=== PATIENT | female | born 1950 | race Caucasian/White ===

== ENCOUNTER → 2016-04-22 | Outpatient (CLI) | payer BC ==
[~2016-04-22] MED LIST: AMLO-114 PO; ASCO10003 PO; EPP3/2; LORA-741 PO; LUTE10TA PO; MULT-845 PO
--- NOTE | 2016-04-22 11:26 | DIAGNOSTIC IMAGING REPORT ---
CT SCAN OF THE PARANASAL SINUSES CLINICAL HISTORY: Chronic sinusitis. Headache and facial pain. COMPARISON STUDY: MRI of the brain dated 09/11/2010. TECHNIQUE: High-resolution CT scan of the paranasal sinuses is performed. Images are reviewed in the axial, sagittal, and coronal planes. IV contrast was not administered for this examination. The examination is performed utilizing the fusion protocol. CT DOSE: 602.96 mGy.cm FINDINGS: Maxillary antra: Mild nodular mucosal thickening seen on the left. Trace nodular mucosal thickening is seen on the right. Anterior ethmoid sinuses: Clear. Posterior ethmoid sinuses: Mild mucosal thickening on the right. Clear on the left. Sphenoid sinuses: Trace mucosal thickening is noted. Frontal sinuses: Trace mucosal thickening is seen bilaterally. Ostiomeatal complexes: Patent bilaterally. There are small bilateral Garrett cells. Frontoethmoidal and sphenoethmoidal recesses: Patent bilaterally. Carotid arteries: The carotid arteries are deeply covered and without septal attachments. Ethmoid roofs: There is asymmetric elevation of the left ethmoid roof as compared to the right. Nasal turbinates: Normal in appearance. Nasal septum: There is minimal leftward deviation of the bony nasal septum. Optic nerves: Covered. Orbits: The bony orbits are intact. Orbital contents are normal in appearance. Calvarium: The imaged calvarium is normal in appearance Mastoid air cells: Well pneumatized. Brain parenchyma: Partially visualized brain parenchyma is within normal limits. IMPRESSION: Mild paranasal sinus disease as above. Electronically signed by: Mal Kaplan M.D. 04/22/2016 11:24 AM Dictated Date/Time: 04/22/2016 11:20 AM
== END | disposition home or self-care (01) ==
LOC: C.CTS 10:47
DX: J31.0 Chronic rhinitis (principal); J32.9 Chronic sinusitis, unspecified; R51 Headache

== ENCOUNTER → 2016-06-20 | Outpatient (CLI) | payer BC ==
--- NOTE | 2016-06-20 16:26 | DIAGNOSTIC IMAGING REPORT ---
LEFT KNEE 2 VIEWS CLINICAL HISTORY: Left knee pain. FINDINGS: AP and lateral views of the left knee are obtained. No prior studies are available for comparison at the time of dictation. The skeletal structures are osteopenic. No fracture is seen. There is mild tricompartmental degenerative joint space narrowing. There is mild degenerative beaking of the tibial spine. No significant joint effusion is identified. The overlying soft tissues are within normal limits. IMPRESSION: No acute bony abnormality is seen in the left knee. Electronically signed by: Mal Kaplan M.D. 06/20/2016 4:26 PM Dictated Date/Time: 06/20/2016 4:25 PM
--- NOTE | 2016-06-20 16:43 | DIAGNOSTIC IMAGING REPORT ---
C-SPINE ROUTINE 4 OR 5 VIEWS CLINICAL HISTORY: Neck pain. COMPARISON STUDY: Cervical spine MRI September 11, 2010. FINDINGS: Reversal of the normal cervical lordosis is noted. There is no fracture or suspicious lesion within the cervical spine. Nspv-li-[id number] multilevel degenerative disc disease is noted, most pronounced at the C4-C5, C5-C6 and C6-C7 levels. Mild multilevel facet arthrosis is present. IMPRESSION: 1. Mild to moderate multilevel degenerative disc disease, most pronounced at C4-C5, C5-C6 and C6-C7. 2. Reversal of normal cervical lordosis. 3. No cervical spine fracture. Electronically signed by: Ricki Rayo M.D. 06/20/2016 4:42 PM Dictated Date/Time: 06/20/2016 4:41 PM
== END | disposition home or self-care (01) ==
LOC: C.RAD 15:57
PROVIDERS: ATTEND Physician Assistant Medical
DX: M54.2 Cervicalgia (principal)

== ENCOUNTER → 2016-08-22 | Outpatient (CLI) | payer BC | END | disposition home or self-care (01) | LOC: C.MAMM 10:17 | PROVIDERS: ATTEND Internal Medicine | DX: M85.88 Other specified disorders of bone density and structure, other site (principal) ==

== ENCOUNTER → 2016-08-29 | Outpatient (CLI) | payer BC ==
[2016-08-29 12:25] LABS: BASO % 0.9 %; BASO ABS # 0.05 K/uL (0-0.2); COMPLETE YES; EOS % 1.7 %; HEMATOCRIT 40.1 % (37-47); IG% 0.2 %; LYMPH ABS # 1.67 K/uL (1.2-3.4); MEAN CELL VOLUME 89.7 fL (80-100); MEAN CORPUSCULAR HEMOGLOBIN 29.3 pg (25-34); MEAN CORPUSCULAR HGB CONC 32.7 g/dl (32-36); MEAN PLATELET VOLUME 10.1 fL (7.4-10.4); MONO % 8.7 %; NEUT % 59.5 %; PLATELET COUNT 249 K/uL (130-400); RED BLOOD COUNT 4.47 M/uL (4.2-5.4); WHITE BLOOD COUNT 5.75 K/uL (4.8-10.8)
[2016-08-29 12:43] LABS: ALT/SGPT 49 U/L (12-78); AST/SGOT 34 U/L (15-37); BLOOD UREA NITROGEN 16 mg/dl (7-18); BUN/CREATININE RATIO 19.3 (10-20); CALCIUM 9.8 mg/dl (8.5-10.1); CARBON DIOXIDE 25 mmol/L (21-32); CHLORIDE 111 mmol/L (98-107); CREATININE 0.82 mg/dl (0.60-1.20); GLUCOSE 95 mg/dl (70-99); POTASSIUM 4.1 mmol/L (3.5-5.1); SODIUM 143 mmol/L (136-145)
[2016-08-29 12:46] LABS: ALB/GLOB RATIO 1.1 (0.9-2); ALKALINE PHOSPHATASE 78 U/L (45-117)
[2016-08-29 12:59] LABS: LYME DISEASE AB IGG NEG (NEG)
[2016-08-29 13:02] LABS: LYME DISEASE AB IGM NEG (NEG)
== END | disposition home or self-care (01) ==
LOC: C.LABBFT 10:03
PROVIDERS: ATTEND Physician Assistant Medical
DX: M25.50 Pain in unspecified joint (principal)

== ENCOUNTER → 2016-08-31 | Outpatient (CLI) | payer BC ==
[2016-08-31 17:58] LABS: C-REACTIVE PROTEIN < 0.29 mg/dl (0-0.29); RHEUMATOID FACTOR < 10.0 U/mL (0-15); THYROID STIMULATING HORMONE 0.774 uIu/ml (0.300-4.500)
[2016-09-05 12:38] LABS: RMSF IgM AB Not Detected (Not Detected)
--- NOTE | 2016-09-13 11:11 | CODING QUERY MEDICAL NECESSITY ---
CQSUPPORTING DIAGNOSIS NEEDED A supporting diagnosis is required for the test/procedure performed on this patient in order for us to be reimbursed by the patient's insurance. Please provide a supporting diagnosis for the following test/procedure listed below next to the test name along with your signature. *If there is no additional diagnosis for this patient that would support the following test/procedure please document that below next to the test/procedure. Test(s)/Procedure(s) that require a supporting diagnosis: DOS 08/31/16 VITAMIN D TEST ORDERED BY KAIDEN BARRIOS Provider Signature: Date: Thank you Casie Richards Health Information Management Once completed, please kindly fax back to [phone] For questions please call [phone]
== END | disposition home or self-care (01) ==
LOC: C.LABBFT 10:36
PROVIDERS: ATTEND Physician Assistant Medical
DX: M25.50 Pain in unspecified joint (principal); R53.83 Other fatigue

== ENCOUNTER → 2016-09-15 | Outpatient (CLI) | payer BC ==
--- NOTE | 2016-09-15 10:09 | DIAGNOSTIC IMAGING REPORT ---
RIGHT HAND MIN 3 VIEWS ROUTINE CLINICAL HISTORY: M25.50 Arthralgia of multiple bxsxsB94.8 MAAME positive Both Right pain COMPARISON: None. DISCUSSION: Mild degenerative change of the mid and distal interphalangeal joints throughout. No significant marginal erosive change. Potential slight periarticular osteopenia. There is no evidence for soft tissue swelling. IMPRESSION: Slight periarticular osteopenia with mild degenerative change of the interphalangeal joints. Possibility of early rheumatoid is considered The above report was generated using voice recognition software. It may contain grammatical, syntax or spelling errors. Electronically signed by: Bimal Underwood M.D. 09/15/2016 10:07 AM Dictated Date/Time: 09/15/2016 10:04 AM
--- NOTE | 2016-09-15 10:14 | DIAGNOSTIC IMAGING REPORT ---
LEFT HAND MIN 3 VIEWS ROUTINE CLINICAL HISTORY: 66 years-old Female presenting with arthralgia of multiple sites, MAAME positive. TECHNIQUE: Frontal, oblique, and lateral views of the left hand were obtained. COMPARISON: Correlation made to plain radiographs of the right hand performed the same day. FINDINGS: Calcification/ossification noted immediately distal to the radial styloid. Degenerative changes of the first carpometacarpal joint. No acute fracture or significant malalignment. Radiocarpal and intercarpal articulations normal. IMPRESSION: 1. Degenerative changes of the first carpometacarpal joint. 2. Soft tissue calcification/ossification immediately distal to the radial styloid. Electronically signed by: Tyrese Holly M.D. 09/15/2016 10:13 AM Dictated Date/Time: 09/15/2016 10:08 AM
[2016-09-19 20:26] LABS: ANA SCREEN Negative (Negative)
== END | disposition home or self-care (01) ==
LOC: C.RAD1850 09:35
PROVIDERS: ATTEND Internal Medicine Rheumatology
DX: M25.50 Pain in unspecified joint (principal); R76.8 Other specified abnormal immunological findings in serum

== ENCOUNTER → 2016-10-04 | Outpatient (CLI) | payer BC ==
--- NOTE | 2016-10-05 07:58 | MAMMOGRAPHY REPORT ---
BILATERAL DIGITAL SCREENING MAMMOGRAM WITH CAD: 10/04/2016 CLINICAL HISTORY: Routine screening. TECHNIQUE: Bilateral CC and MLO views were obtained. Current study was also evaluated with a Compute r Aided Detection (CAD) system. COMPARISON: Comparison is made to exams dated: 09/28/2015 mammogram, 09/24/2014 mammogram, 06/19/2013 franco mogram, 06/27/2011 mammogram, 10/30/2009 mammogram - [facility], and 03/07/2008. BREAST COMPOSITION: There are scattered areas of fibroglandular density in both breasts. FINDINGS: No suspicious mass, architectural distortion or cluster of microcalcifications is seen. IMPRESSION: ACR BI-RADS CATEGORY 1: NEGATIVE There is no mammographic evidence of malignancy. A 1 year screening mammogram is recommended. The pa tient will receive written notification of the results. Approximately 10% of breast cancers are not detected with mammography. A negative mammographic report should not delay biopsy if a clinically suggestive mass is present. Sylvie Hastings M.D. ay/:10/04/2016 15:18:31 Scrap Cutter: Devon REID(R)(M), [facility] letter sent: Normal 1/2 BI-RADS Code: ACR BI-RADS Category 1: Negative
== END | disposition home or self-care (01) ==
LOC: C.MAMM 14:37
PROVIDERS: ATTEND Obstetrics & Gynecology
DX: Z12.31 Encounter for screening mammogram for malignant neoplasm of breast (principal)

== ENCOUNTER 2017-09-14 17:43 | Emergency (ER) | payer BC ==
[~2017-09-14] VITALS: Ht 157.5 cm; Wt 68.7 kg
[~2017-09-14 17:43] MED LIST changes: -AMLO-114 PO; +AMLO10TA3 PO; +ZOLP5TAB6 PO
[2017-09-14] MEDS ORDERED: EPINEPHRINE ADULT AUTO-INJECT 0.3 MG SYR ONE (17:46)
[2017-09-14] MEDS ORDERED: FAMOTIDINE 20MG/5ML IV PUSH IV STA (17:47)
[2017-09-14] MEDS ORDERED: DiphenhydrAMINE HCL 50 MG/ML VIAL IV STA (17:47)
[2017-09-14] MEDS ORDERED: SODIUM CHLORIDE 0.9% 1000ML 1,000 ML IV STA (17:47)
[2017-09-14] MEDS ORDERED: EPINEPHRINE ADULT AUTO-INJECT 0.3 MG SYR IM STA (17:47)
[2017-09-14] MEDS ORDERED: METHYLPREDNISOLONE 125 MG VIAL IV STA (17:47)
[2017-09-14 17:51] VITALS: TEMP 37; Ht 157.5 cm; Wt 68.7 kg
--- NOTE | 2017-09-14 17:57 | EMERGENCY ROOM VISIT NOTE ---
History Report prepared by Juan Antonio: Armand Snell Under the Supervision of: Dr. Allan Mccarthy M.D. First contact with patient: 17:46 Chief Complaint: ALLERGIC REACTION Stated Complaint: BEE STING THROAT SWELLING SHUT,SOB History of Present Illness The patient is a 67 year old female who presents to the Emergency Room with complaints of an allergic reaction to bee stings that occurred 30 minutes ago. The patient notes that she has a severe bee sting allergy and has already used 2 EpiPens already this summer and no longer has any epipens. She states that she was mowing her lawn when she got stung 4 times. She received 2 stings to the back of the left knee and 2 to the back of the right arm. She describes her current pain as a "burning" sensation around the sting sites and to the back of her head. She did take 1 Benadryl tablet prior to arrival. She is currently requesting an Epinephrine injection and believes that she will need it. She denies any shortness of breath Source of History: patient Onset: 30 minutes ago Position: arm (right), knee (left) Quality: burning, other (Bee sting) Timing: other (30 minutes ago, bee sting) Associated Symptoms: + SOB Review of Systems See HPI for pertinent positives and negatives. A total of ten systems were reviewed and were otherwise negative. Past Medical & Surgical Medical Problems: (1) radicuylopathy Social History Smoking Status: Never Smoker Drug Use: none Marital Status: Housing Status: lives with family, lives with significant other Current/Historical Medications Scheduled Amlodipine (Norvasc), 10 MG PO QAM Ascorbic Acid (Vitamin C), 1 TAB PO BID Epinephrine (Epipen 2-Jonathan), prn Lutein (Lutein), 2 TAB PO QAM Multiple Vitamins W/ Minerals (Centrum Silver Adult 50+), 1 TAB PO QAM Zolpidem Tartrate (Zolpidem Tartrate), 0.5 TAB PO HS Scheduled PRN Epinephrine (Epipen 2-Jonathan), 1 APPLN IM DIRECTED PRN for Allergic Reaction Allergies Coded Allergies: BEE STING (Verified Allergy, Severe, ANAPHYLAXIS, 09/14/17) Doxycycline (Verified Allergy, Severe, GUILLAIN-BARRE SYNDROME, 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 She appears well- developed and well-nourished. She does not appear distressed. HENT: Exam performed. Head: Normocephalic and atraumatic. Right Ear: External ear normal. No mastoid tenderness. Left Ear: External ear normal. No mastoid tenderness. Mouth/Throat: The oropharynx is clear and moist. No trismus in the jaw. No dental abscesses or uvula swelling. No oropharyngeal exudate or tonsillar abscesses. EYES: Conjunctivae and EOM are normal. Pupils are equal, round, and reactive to light. Right eye exhibits no discharge. Left eye exhibits no discharge. No scleral icterus. NECK: Normal range of motion. Neck supple. No JVD present. No spinous process tenderness present. No carotid bruit present. No rigidity. No tracheal deviation and normal range of motion present. No Brudzinski's sign and no Kernig 's sign noted. CV: Normal rate, regular rhythm, normal heart sounds and intact distal pulses. There is no peripheral edema. Palpable radial pulses bue. PULM/CHEST: Effort normal and breath sounds normal. No respiratory distress. No stridor. She has no wheezes. She has no rales. Chest Wall: She exhibits no tenderness. ABD: The abdomen is soft. Bowel sounds are normal. She has no distension. No mass is present. There is no tenderness. There is no rebound, no guarding, no Manzanares's sign and no tenderness at McBurney's point. Rovsig negative MUSC/SKEL: Normal range of motion. There is no peripheral edema, tenderness or deformity. LYMPH: No cervical adenopathy. NEURO: She is alert and oriented to person, place, and time. She has normal strength. No cranial nerve deficit or sensory deficit. Coordination and gait normal. GCS eye subscore is 4. GCS verbal subscore is 5. GCS motor subscore is 6. Cerebellar tests wnl. SKIN: Skin is warm and dry. She is not diaphoretic. PSYCH: She has a normal mood and affect. Behavior is normal. Judgment and thought content normal. Medical Decision & Procedures Medications Administered Medications (Trade) Dose Ordered Sig/Julio Cesar Route Start Time Stop Time Status Last Admin Dose Admin Epinephrine (Epipen) 0.3 mg STK-MED ONCE .ROUTE 09/14/17 17:46 09/14/17 17:47 DC 09/14/17 17:46 0.3 MG Sodium Chloride 1,000 ml @ 999 mls/hr Q1H1M STAT IV 09/14/17 17:47 09/14/17 18:47 DC 09/14/17 17:57 999 MLS/HR Methylprednisolone Sodium Succinate (Solu-Medrol IV) 125 mg NOW STAT IV 09/14/17 17:47 09/14/17 17:49 DC 09/14/17 17:57 125 MG Diphenhydramine HCl (Benadryl Inj) 25 mg NOW STAT IV 09/14/17 17:47 09/14/17 17:49 DC 09/14/17 17:57 25 MG Famotidine (Pepcid 20mg Iv Push) 20 mg ONE STAT IV 09/14/17 17:47 09/14/17 17:49 DC 09/14/17 17:47 20 MG ED Course 1746: The patient was evaluated in room A3. A complete history and physical exam was performed. 1745: Ordered Epinephrine 0.3 mg, Famotidine 20 mg IV, Benadryl 25 mg IV, Epinephrine 0.3 mg IM, Solu-Medrol 125 mg IV, Sodium Chloride 1000 mL @ 999 mL/ hr IV. 1844: The patient is not exhibiting any stridor at this time. There is no wheezing, no tongue swelling. We will continue to observe the patient given epinephrine injection. 1944: Patient's vitals are stable. She states that she is not feeling like her throat is closing. There is no stridor, no wheezing, no tongue swelling. There is no respiratory distress. The patient will be discharged home with refill EpinephrinePen. DISCHARGE - Plan of care discussed with patient and questions answered. The patient was given both verbal and printed discharge instructions. The patient verbalized understanding and ability to comply. The patient is to seek outpatient follow up as noted in the discharge instructions. The patient verbalized understanding and ability to comply. The patient is discharged in stable condition. The patient was instructed to return for worsening symptoms. Medical Decision 1746: The patient was evaluated in room A3. A complete history and physical exam was performed. 174: Ordered Epinephrine 0.3 mg, Famotidine 20 mg IV, Benadryl 25 mg IV, Epinephrine 0.3 mg IM, Solu-Medrol 125 mg IV, Sodium Chloride 1000 mL @ 999 mL/ hr IV. 184: The patient is not exhibiting any stridor at this time. There is no wheezing, no tongue swelling. We will continue to observe the patient given epinephrine injection. 1944: Patient's vitals are stable. She states that she is not feeling like her throat is closing. There is no stridor, no wheezing, no tongue swelling. There is no respiratory distress. The patient will be discharged home with refill EpinephrinePen. DISCHARGE - Plan of care discussed with patient and questions answered. The patient was given both verbal and printed discharge instructions. The patient verbalized understanding and ability to comply. The patient is to seek outpatient follow up as noted in the discharge instructions. The patient verbalized understanding and ability to comply. The patient is discharged in stable condition. The patient was instructed to return for worsening symptoms. Medication Reconcilliation Current Medication List: was personally reviewed by me Blood Pressure Screening Patient's blood pressure: Elevated blood pressure Blood pressure disposition: Elevated BP felt to be situational Impression Primary Impression: Allergic reaction to bee sting Critical Care I have personally spent greater than 56 minutes of critical care time in the direct management of this patient. This includes bedside care, interpretation of diagnostic studies, and testing, discussion with consultants, patient, and family members, and other required patient management activities. This 56 minutes is in excess of all separately billable procedures. Scribe Attestation The scribe's documentation has been prepared under my direction and personally reviewed by me in its entirety. I confirm that the note above accurately reflects all work, treatment, procedures, and medical decision making performed by me. The chart was completed utilizing [employer] voice recognition software. Grammatical errors, random word insertions, pronoun errors, and incomplete sentences are an occasional consequence of this system due to software limitations, ambient noise, and hardware issues. Any formal questions or concerns about the content, text, or information contained within the body of this dictation should be directly addressed to the physician for clarification. Departure Information Dispostion Home / Self-Care Prescriptions Epinephrine (EPIPEN 2-JONATHAN) 0.3 Mg Inj 1 APPLN IM DIRECTED Y for Allergic Reaction, #1 APPLN 1 Refill Prov: Allan Mccarthy M.D. 09/14/17 Referrals Kenrick Lloyd M.D. (PCP) Patient Instructions My [facility]
[2017-09-14] MEDS ORDERED: EPP3/2 IM (19:40)
[2017-09-14 20:06] VITALS: BP 137/77; PULSE 77; O2SAT 98
== END 2017-09-14 20:06 | disposition home or self-care (01) ==
LOC: C.EDB 17:44 → C.EDA 20:06
DX: T63.441A Toxic effect of venom of bees, accidental (unintentional), initial encounter (principal); Z79.899 Other long term (current) drug therapy; Z88.0 Allergy status to penicillin; Z88.1 Allergy status to other antibiotic agents; Z88.2 Allergy status to sulfonamides; Z88.8 Allergy status to other drugs, medicaments and biological substances; Z91.030 Bee allergy status

== ENCOUNTER → 2017-10-05 | Outpatient (CLI) | payer BC ==
[~2017-10-05] MED LIST changes: +EPP3/2 IM; -LORA-741 PO
--- NOTE | 2017-10-05 15:40 | MAMMOGRAPHY REPORT ---
BILATERAL DIGITAL SCREENING MAMMOGRAM TOMOSYNTHESIS WITH CAD: 10/05/2017 TECHNIQUE: The study was acquired using full field digital technology and interpreted from soft copy. Breast tomosynthesis in addition to standard 2D mammography was performed. Current study was also ev aluated with a Computer Aided Detection (CAD) system. COMPARISON: Comparison is made to exams dated: 10/04/2016 mammogram, 09/28/2015 mammogram, 09/24/2014 franco mogram, 06/27/2011 mammogram, 06/22/2010 mammogram, and 11/09/2009 ultrasound - [facility] er. BREAST COMPOSITION: There are scattered areas of fibroglandular density in both breasts. FINDINGS: No suspicious masses, calcifications, or areas of architectural distortion are noted in either breast . There has been no significant interval change compared to prior exams. IMPRESSION: ACR BI-RADS CATEGORY 1: NEGATIVE There is no mammographic evidence of malignancy. A 1 year screening mammogram is recommended.( 019) The patient will receive written notification of the results. Some breast cancers are not detected with mammography. A negative mammographic report should not edward y biopsy if a clinically suggestive mass is present. Mulu Davis M.D. ah/:10/05/2017 12:16:24 Lehr Loader: RT Cori(Denice)(M), [facility] [address] letter sent: Normal 1/2 BI-RADS Code: ACR BI-RADS Category 1: Negative
== END | disposition home or self-care (01) ==
LOC: C.MAMM 10:58
PROVIDERS: ATTEND Obstetrics & Gynecology
DX: Z12.31 Encounter for screening mammogram for malignant neoplasm of breast (principal)

== ENCOUNTER 2021-05-04 14:19 | Observation (INO) ==
[2021-05-04 15:10] LABS: Basophils # (auto) 0.05 K/uL (0-0.2); Basophils % (auto) 0.8 %; Eosinophils # (auto) 0.07 K/uL (0-0.5); Eosinophils % (auto) 1.1 %; Hematocrit (blood only) 35.3 % (37-47); Hemoglobin 11.6 g/dL (12.0-16.0); Immature Granulocytes # (auto) 0.01 K/uL (0.00-0.02); Immature Granulocytes % (auto) 0.2 %; Lymphocytes % (auto) 33.4 %; Mean Corpuscular Hemoglobin 28.7 pg (25-34); Mean Corpuscular Hgb Conc 32.9 g/dL (32-36); Mean Corpuscular Volume 87.4 fL (80-100); Mean Platelet Volume 8.6 fL (7.4-10.4); Monocytes # (auto) 0.54 K/uL (0.11-0.59); Monocytes % (auto) 8.6 %; Neutrophils # (auto) 3.51 K/uL (1.4-6.5); Neutrophils % (auto) 55.9 %; Platelet Count 254 K/uL (130-400); RDW Coefficient of Variation 16.2 % (11.5-14.5); Red Blood Count 4.04 M/uL (4.2-5.4); White Blood Count 6.28 K/uL (4.8-10.8)
--- NOTE | 2021-05-04 15:33 | XRay Report ---
XR chest 2V PA/lateral HISTORY: 70 years-old Female sob, cp acute shortness of breath with atypical chest pain COMPARISON: None TECHNIQUE: PA and lateral views of the chest FINDINGS: The cardiomediastinal and hilar silhouettes are within normal limits. Hiatal hernia. No pneumothorax, pleural effusion, airspace consolidation or overt pulmonary edema. The bones appear grossly intact. Unchanged mild extra scoliosis of the midthoracic spine. IMPRESSION: 1. No acute process. 2. Hiatal hernia. ACT 112: Negative or not required by law. The above report was generated using voice recognition software. It may contain grammatical, syntax o r spelling errors. Electronically signed by: Jt Moore M.D. 05/04/2021 3:32 PM
[2021-05-04 15:34] LABS: Partial Thromboplastin Time 27.4 Seconds (21.0-31.0); Prothrombin Time 10.8 Seconds (9.0-12.0)
[2021-05-04 15:37] LABS: Troponin I < 0.03 ng/ml (0-0.04)
[2021-05-04 15:43] LABS: Alanine Aminotransferase 17 U/L (7-52); Albumin Globulin Ratio 1.7 (0.9-2); Albumin Level 4.3 gm/dl (3.4-5.0); Alkaline Phosphatase 66 U/L (34-104); Anion Gap 8 (3-11); Aspartate Aminotransferase 24 U/L (13-39); BUN Creatinine Ratio 17.6 (10-20); Bilirubin,Total 0.4 mg/dl (0.2-1.0); Blood Urea Nitrogen 18 mg/dl (6-23); Calcium 9.9 mg/dl (8.5-10.1); Carbon Dioxide 24 mmol/L (21-32); Chloride 107 mmol/L (98-107); Creatinine Clr Calc Pharmacy 44.6 ml/min; Est GFR (African American) 63.6 ml/min; Est GFR (Non-African American) 54.9 ml/min; Globulin 2.6 gm/dl (2.5-4.0); Glucose 92 mg/dl (70-99(Fasting)); Magnesium 2.1 mg/dl (1.7-2.4); Sodium 139 mmol/L (136-145); Total Protein 6.9 gm/dl (6.0-8.3)
--- NOTE | 2021-05-04 17:23 | Emergency Department Note ---
Impression & Plan Precordial chest pain, SOB (shortness of breath) ED Provider Note NAME: ANDERSON AMES AGE: 70 SEX: F : 1950 ARRIVES VIA: Walk-In INFORMANT: [Patient] ED PROVIDER(S): [Mal Meza MD] CHIEF COMPLAINT: Chest pain, short of breath HISTORY OF PRESENT ILLNESS: Patient is a 70-year-old female presents to the ER with complaints of chest pain and some shortness of breath. Her symptoms have been ongoing for just less than a week. The symptoms come on with exertion and seem to resolve with rest. The episodes cause her to feel short of breath. No sweating or nausea. The pain gets as bad as an 8/10 and is pressure-like. The patient saw her primary doctor today and was given 4 baby aspirin. She was referred to the ER. Patient has no diagnosed coronary disease. She is hypertensive though. She also has a mother who had heart disease. The patient does not smoke tobacco. The patient is currently asymptomatic and resting on the stretcher. REVIEW OF SYSTEMS: See HPI for pertinent positives and negatives. A total of ten systems were reviewed and were otherwise negative. PMHx/PSHx: See Below SOCIAL HISTORY: See Below. PHYSICAL EXAM: GENERAL: Patient is in no acute distress. HEENT: No acute trauma, normocephalic atraumatic, mucous membranes moist, no nasal congestion, no scleral icterus. NECK: No stridor, no adenopathy, no meningismus, trachea is midline. LUNGS: Clear to auscultation bilaterally, no wheeze, no rhonchi, breath sounds equal. Chest: Nontender chest wall. HEART: Without murmurs gallops or rubs, regular rate and rhythm. ABDOMEN: Soft, nontender, bowel sounds positive, no hernias, no peritonitis. EXTREMITIES: No cyanosis or edema, full range of motion of all the joints without pain or difficulty, no signs for acute trauma. NEUROLOGIC: Oriented x 3, no acute motor or sensory deficits, no focal weakness. SKIN: No rash, no jaundice, no diaphoresis. DIFFERENTIAL DIAGNOSIS: Cardiac ischemia, aortic dissection, pulmonary embolism, pneumothorax, pneumonia, pericarditis, myocarditis, esophageal rupture, GERD, cholecystitis, pancreatitis, musculoskeletal, as well as other pathologies. EMERGENCY DEPARTMENT COURSE/PROCEDURES: ECG: Indication was chest pain. The ECG shows a normal sinus rhythm with a rate of 77. There is no ST elevation, no PVCs. LVH is present. The QTc is 414. Continuous Cardiac Monitoring: An order was placed for continuous cardiac monitoring. The monitor shows a rate of 78 with normal sinus rhythm. MEDICAL DECISION MAKING: There is no leukocytosis. A mild anemia was noted. No concerning issues with the platelet count. No coagulopathy. No significant electrolyte abnormality or kidney failure. No worrisome liver enzyme elevation. ECG showed a normal sinus rhythm, no obvious ischemia. Cardiac enzyme testing x1 is not consistent with acute cardiac injury. Chest film shows a hiatal hernia, no pneumonia or CHF. Covid testing returned negative. The patient presents with exertional chest pain which resolves with rest. She has had symptoms for a week. I did speak with cardiology about the patient's complaints and work-up. Hospitalization and further cardiac work-up was felt warranted. I spoke with the patient, I talked to case management, the on-call hospitalist was consulted. As the patient was asymptomatic, no emergent medications administered in the ED. The patient had received aspirin prior to arrival at our ED. Past Med/Surg History Medical History MAAME positive Contact dermatitis Encopresis, nonorganic origin Esophageal dysphagia (2018) H/O Guillain-Rochester syndrome X2 Hearing deficit Paresthesia (09/12/10) Venom-induced anaphylaxis Surgical History History of arthroscopy of left knee History of bilateral tubal ligation History of colonoscopy History of dilatation and curettage History of esophagogastroduodenoscopy (EGD) History of tooth extraction History of total abdominal hysterectomy and bilateral salpingo-oophorectomy History of tubal ligation Family History Family/Other Multiple benign polyps of large intestine Diabetes Heart disease Hypertension Stroke syndrome Mother Pure hypercholesterolemia Thyroid disorder Heart disease Hypertension Breast cancer, Onset Age: 78 Sinus disorder Asthma FHx: allergies FHx: deafness or hearing loss Aunt Heart disease Hypertension Stroke syndrome Sinus disorder FHx: deafness or hearing loss Grandmother Hypertension Myocardial infarction Family/Other Hypertension Family/Other Breast cancer Grandfather Asthma Sister FHx: allergies Breast cancer Stroke Brother FHx: allergies Family/Other Breast cancer Daughter Breast cancer, Onset Age: 49 Denies family history of Ovarian cancer Prostate cancer Colorectal cancer Social History Smoking Status: Never smoker Second Hand Exposure: Yes (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 SMOKED); Hx Alcohol Use: No Hx Substance Use: No Preferred Language: Croatian Communication Ability: Effective Visual Impairment: Limited Hearing Ability: Use of Hearing Aid Windlace Machine Operator Required: No Beliefs That Will Affect Care: None marital status: Current Living Situation: Spouse current occupational status: retired current occupation: retired from career as financial systems director How many Children do You have: 3 Feels Safe at Home: Yes Childhood Exposure to Second-Hand Smoke: Yes caffeine: Yes (coffee) during the past year weight has: remained stable Dental Care, Regularly: Yes Physical Activity Frequency: Daily Seatbelt Use: always Sunscreen Use: Yes Assistive Devices: CPAP, Denture - Lower, Glasses and Hearing Aid - Bilateral Allergies Allergies Allergy/AdvReac Type Severity Reaction Status Date / Time bee venom protein (honey bee) Allergy Severe ANAPHYLAXIS Verified 05/04/21 13:02 doxycycline Allergy Severe GUILLAIN-BARRE Verified 05/04/21 13:02 SYNDROME Sulfa (Sulfonamide Allergy Severe RASH AND Verified 05/04/21 13:02 Antibiotics) SWELLING bupropion Allergy Intermediate RASH AND Verified 05/04/21 13:02 TROUBLE BREATHING Penicillins Allergy Mild RASH Verified 05/04/21 13:02 escitalopram [From Lexapro] Allergy Unknown Unknown Verified 05/04/21 13:02 mirtazapine Allergy Unknown SWELLING Verified 05/04/21 13:02 prednisone AdvReac Severe Anxiety, Verified 05/04/21 13:02 headaches Home Meds Home Medications Medication Instructions Recorded Confirmed zolpidem 5 mg tablet 5 mg PO HS PRN 05/04/21 05/04/21 Previous Rx's Medication Instructions Recorded amlodipine 10 mg tablet 10 mg PO QAM #90 tab 01/19/21 epinephrine 0.3 mg/0.3 mL 0.3 mg IM Q3H PRN #2 ea 03/02/21 injection, auto-injector (EpiPen) doxepin 10 mg capsule 10 mg PO HS #30 cap 05/04/21 Results & Data (ED) Vital Signs Vital Signs - 24 hr 05/04/21 14:47 05/04/21 16:44 05/04/21 16:47 Temperature 36.9 C Temperature Source Temporal Artery Scan Pulse Rate 79 78 Pulse Rhythm Regular Regular Pulse Strength Normal Respiratory Rate 19 16 Respiratory Effort / Characteristics Non-Labored Spontaneous Non-Labored Respiratory Depth Normal Normal Respiratory Pattern Regular Blood Pressure 134/80 Blood Pressure [Right Arm] 133/83 Blood Pressure Mean 98 Blood Pressure Mean [Right Arm] 99 Blood Pressure Position Sitting Pulse Oximetry 97 99 Oxygen Delivery Method Room Air Room Air Sepsis Recent Fever Within 48 Hours No Sepsis New/Unexplained Change in Mental Status N/A Sepsis Action Taken by Nursing No Action Required Home Medications Current Medication List: was personally reviewed by me Laboratory Data Attestation: I reviewed the patient's lab results. Result diagrams: 05/04/21 14:59 05/04/21 14:59 Lab Results 05/04/21 05/04/21 05/04/21 Range/Units 14:59 14:59 14:59 WBC 6.28 (4.8-10.8) K/uL RBC 4.04 L (4.2-5.4) M/uL Hgb 11.6 L (12.0-16.0) g/dL Hct 35.3 L (37-47) % MCV 87.4 (80-100) fL MCH 28.7 (25-34) pg MCHC 32.9 (32-36) g/dL RDW Std Deviation 52.0 H (36.4-46.3) fL RDW Coeff of Sid 16.2 H (11.5-14.5) % Plt Count 254 (130-400) K/uL MPV 8.6 (7.4-10.4) fL Immature Gran % (Auto) 0.2 % Neut % (Auto) 55.9 % Lymph % (Auto) 33.4 % George % (Auto) 8.6 % Eos % (Auto) 1.1 % Baso % (Auto) 0.8 % Neut # (Auto) 3.51 (1.4-6.5) K/uL Lymph # (Auto) 2.10 (1.2-3.4) K/uL George # (Auto) 0.54 (0.11-0.59) K/uL Eos # (Auto) 0.07 (0-0.5) K/uL Baso # (Auto) 0.05 (0-0.2) K/uL Immature Gran # (Auto) 0.01 (0.00-0.02) K/uL PT 10.8 (9.0-12.0) Seconds INR 1.0 (0.9-1.1) APTT 27.4 (21.0-31.0) Seconds PTT Ratio 1.0 Sodium 139 (136-145) mmol/L Potassium 4.0 (3.5-5.1) mmol/L Chloride 107 (98-107) mmol/L Carbon Dioxide 24 (21-32) mmol/L Anion Gap 8 (3-11) BUN 18 (6-23) mg/dl Creatinine 1.02 (0.6-1.2) mg/dl Est Cr Clr Drug Dosing 44.6 ml/min Est GFR ( Amer) 63.6 ml/min Est GFR (Non-Af Amer) 54.9 ml/min BUN/Creatinine Ratio 17.6 (10-20) Glucose 92 (70-99(Fasting)) mg/dl Calcium 9.9 (8.5-10.1) mg/dl Magnesium 2.1 (1.7-2.4) mg/dl Total Bilirubin 0.4 (0.2-1.0) mg/dl AST 24 (13-39) U/L ALT 17 (7-52) U/L Alkaline Phosphatase 66 (34-104) U/L Troponin I < 0.03 (0-0.04) ng/ml Total Protein 6.9 (6.0-8.3) gm/dl Albumin 4.3 (3.4-5.0) gm/dl Globulin 2.6 (2.5-4.0) gm/dl Albumin/Globulin Ratio 1.7 (0.9-2) SARS-CoV-2, RNA, NAAT (NEGATIVE) 05/04/21 Range/Units 17:32 WBC (4.8-10.8) K/uL RBC (4.2-5.4) M/uL Hgb (12.0-16.0) g/dL Hct (37-47) % MCV (80-100) fL MCH (25-34) pg MCHC (32-36) g/dL RDW Std Deviation (36.4-46.3) fL RDW Coeff of Sid (11.5-14.5) % Plt Count (130-400) K/uL MPV (7.4-10.4) fL Immature Gran % (Auto) % Neut % (Auto) % Lymph % (Auto) % George % (Auto) % Eos % (Auto) % Baso % (Auto) % Neut # (Auto) (1.4-6.5) K/uL Lymph # (Auto) (1.2-3.4) K/uL George # (Auto) (0.11-0.59) K/uL Eos # (Auto) (0-0.5) K/uL Baso # (Auto) (0-0.2) K/uL Immature Gran # (Auto) (0.00-0.02) K/uL PT (9.0-12.0) Seconds INR (0.9-1.1) APTT (21.0-31.0) Seconds PTT Ratio Sodium (136-145) mmol/L Potassium (3.5-5.1) mmol/L Chloride (98-107) mmol/L Carbon Dioxide (21-32) mmol/L Anion Gap (3-11) BUN (6-23) mg/dl Creatinine (0.6-1.2) mg/dl Est Cr Clr Drug Dosing ml/min Est GFR ( Amer) ml/min Est GFR (Non-Af Amer) ml/min BUN/Creatinine Ratio (10-20) Glucose (70-99(Fasting)) mg/dl Calcium (8.5-10.1) mg/dl Magnesium (1.7-2.4) mg/dl Total Bilirubin (0.2-1.0) mg/dl AST (13-39) U/L ALT (7-52) U/L Alkaline Phosphatase (34-104) U/L Troponin I (0-0.04) ng/ml Total Protein (6.0-8.3) gm/dl Albumin (3.4-5.0) gm/dl Globulin (2.5-4.0) gm/dl Albumin/Globulin Ratio (0.9-2) SARS-CoV-2, RNA, NAAT NEGATIVE (NEGATIVE) Imaging Data Radiologist's Impression: Chest X-Ray 05/04/21 14:58 XR chest 2V PA/lateral HISTORY: 70 years-old Female sob, cp acute shortness of breath with atypical chest pain COMPARISON: None TECHNIQUE: PA and lateral views of the chest FINDINGS: The cardiomediastinal and hilar silhouettes are within normal limits. Hiatal hernia. No pneumothorax, pleural effusion, airspace consolidation or overt pulmonary edema. The bones appear grossly intact. Unchanged mild extra scoliosis of the midthoracic spine. IMPRESSION: 1. No acute process. 2. Hiatal hernia. ACT 112: Negative or not required by law. The above report was generated using voice recognition software. It may contain grammatical, syntax or spelling errors. Electronically signed by: Jt Moore M.D. 05/04/2021 3:32 PM Discharge Plan Visit Data Chief Complaint: Shortness of Breath/Dyspnea Stated Complaint: SHORTNESS OF BREATH, DISCOMFORT IN CHEST ED Provider: Mal Meza Discharge Problem: Precordial chest pain, SOB (shortness of breath) Patient Disposition: Admitted As Inpatient Condition: Good Forms Stand Alone Forms: [employer] Prescriptions Prescriptions: No Action amlodipine 10 mg tablet 10 mg PO QAM Qty: 90 RF: 3 epinephrine [EpiPen] 0.3 mg/0.3 mL auto-injector 0.3 mg IM Q3H PRN (Reason: Allergic Reaction) Qty: 2 RF: 3 doxepin 10 mg capsule 10 mg PO HS Qty: 30 RF: 0 zolpidem 5 mg tablet 5 mg PO HS PRN (Reason: insomnia) RF: 0 Referrals Referrals: Haley Rayo MD [Primary Care Provider] -
--- NOTE | 2021-05-04 18:34 | History & Physical Report ---
Date of Service May 04, 2021 Assessment & Plan (1) Precordial chest pain: Plan: -DDx includes GI (reflux, hiatal hernia) vs cardiac (new-onset angina). She does have multiple risk factors for CAD, including HTN and HLD, she is slightly overweight and also has FH of CAD in mother, grandmother, and possibly some aunts. Chest pain is most of the time exertional. Does occasionally have abdominal pain with it near her hiatal hernia, reports a burning sensation in her throat on one occasion. Chest pain currently being described as a pressure, initially 5-6/10, now 4/10 after nitrostat x1. Initial troponin < .03, EKG done during episode of chest pain is without any ST segment or T wave changes, which is reassuring. -Will apply nitro paste .5 inch, assess pain response. Also will order GI cocktail. -Trend troponin Q6h. Repeat EKG with worsening chest pain. -NPO @ midnight for stress echo in AM. -If patient continues to experiences chest pain in the setting of negative troponins and unchanged EKGs, can consider a chest CT to look for a dissection or PE. (2) Hypertension: Plan: -Continue amlodipine 10 mg daily. (3) Hyperlipidemia: Plan: -Stable, not on any medications currently. (4) Hiatal hernia: Plan: - Was scheduled to have surgery for this, but it was postponed due to the COVID pandemic. Does have a h/o GERD, reports one episode of sour brash this past week, without nausea/vomiting. - Will give GI cocktail now to see if this alleviates her symptoms. (5) Insomnia: Plan: -Currently takes Ambien 5 mg in the evenings, plans to transition to doxepin in the future (6) Iron deficiency anemia: Plan: -Stable, Hgb 11.6, no acute bleeding. -Continue to monitor. (7) Obstructive sleep apnea: Plan: -CPAP at night. Plan: -Observation MedSurg with telemetry. -SCDs and Lovenox for DVT ppx -DNR/DNI. History of Present Illness Chief Complaint: Chest pain Primary Care Provider: Haley Rayo MD Patient is 70-year-old female with a past medical history of HTN, HLD, hiatal hernia, iron deficiency anemia, and insomnia who presents today with intermittent episodes of chest pain and shortness of breath. Patient states she first noticed it last week when she experienced left-sided chest pressure with r adiation to her left shoulder shortly after going up and down stairs at home. The pressure eventually went away with rest, however patient continued to experience bouts of this several times since then, accompanied by slight shortness of breath. She does not specifically notice it while engaging in activity, however she becomes aware of it once she has a moment to sit down. She woke up with the same chest pressure this morning, but it had gone away by the time she was at her PCPs office for a regularly scheduled wellness visit. She has not experienced chest pressure like this before, but has occasional upper abdominal pain due to a large hiatal hernia, which was supposed to be surgically repaired prior to the onset of the COVID-19 pandemic. She has occasional episodes of sour brash and has previously had to take Tums and PPIs for GERD in the past, however has not been an issue for recently. She denies fever/chills, diaphoresis, dyspnea at rest, palpitations, cough, radiation of chest pain to right arm, back, neck, or jaw, denies nausea/vomiting, diarrhea, constipation, lightheadedness, weakness, syncope. Denies a personal history of cardiac or pulmonary disease or previous VTE, does have a family history of aneurysm, CAD, and a-fibb. She did have COVID in February and felt very ill, but did not require hospitalization and feels she has made a full recovery. Allergies Allergy/AdvReac Type Severity Reaction Status Date / Time bee venom protein (honey bee) Allergy Severe ANAPHYLAXIS Verified 05/04/21 13:02 doxycycline Allergy Severe GUILLAIN-BARRE Verified 05/04/21 13:02 SYNDROME Sulfa (Sulfonamide Allergy Severe RASH AND Verified 05/04/21 13:02 Antibiotics) SWELLING bupropion Allergy Intermediate RASH AND Verified 05/04/21 13:02 TROUBLE BREATHING Penicillins Allergy Mild RASH Verified 05/04/21 13:02 escitalopram [From Lexapro] Allergy Unknown Unknown Verified 05/04/21 13:02 mirtazapine Allergy Unknown SWELLING Verified 05/04/21 13:02 prednisone AdvReac Severe Anxiety, Verified 05/04/21 13:02 headaches Home Medications Medication Instructions Recorded Confirmed Type amlodipine 10 mg tablet 10 mg PO QAM #90 tab 01/19/21 05/04/21 Rx epinephrine 0.3 mg/0.3 mL 0.3 mg IM Q3H PRN #2 ea 03/02/21 05/04/21 Rx injection, auto-injector (EpiPen) doxepin 10 mg capsule 10 mg PO HS #30 cap 05/04/21 05/04/21 Rx zolpidem 5 mg tablet 5 mg PO HS PRN 05/04/21 05/04/21 History Past Med/Surg History Medical History (Updated 05/05/21 @ 08:16 by Gil Restrepo) MAAME positive Contact dermatitis Encopresis, nonorganic origin Esophageal dysphagia (2017) H/O Guillain-Monetta syndrome X2 Hearing deficit Hiatal hernia Paresthesia (09/12/10) Venom-induced anaphylaxis Surgical History History of arthroscopy of left knee May 2001-Dr. Arndt History of bilateral tubal ligation History of colonoscopy fiberoptic complete History of dilatation and curettage History of esophagogastroduodenoscopy (EGD) History of tooth extraction History of total abdominal hysterectomy and bilateral salpingo-oophorectomy 1995 History of tubal ligation Family History Family/Other Multiple benign polyps of large intestine Diabetes Heart disease Hypertension Stroke syndrome Mother Pure hypercholesterolemia Thyroid disorder Heart disease Hypertension Breast cancer, Onset Age: 78 Sinus disorder Asthma FHx: allergies FHx: deafness or hearing loss Aunt Heart disease Hypertension Stroke syndrome Sinus disorder FHx: deafness or hearing loss Grandmother Hypertension Myocardial infarction Family/Other Hypertension Family/Other Breast cancer genetic testing negative Grandfather Asthma Sister FHx: allergies Breast cancer Stroke Brother FHx: allergies Family/Other Breast cancer Daughter Breast cancer, Onset Age: 49 undergoing genetic testing currently Denies family history of Ovarian cancer Prostate cancer Colorectal cancer Social History Smoking Status: Never smoker Second Hand Exposure: Yes (STEPFATHER SMOKED); Hx Alcohol Use: No Hx Substance Use: No Preferred Language: Romanian Communication Ability: Effective Visual Impairment: Limited Hearing Ability: Use of Hearing Aid Pre Billing Clinician Required: No Beliefs That Will Affect Care: None marital status: Current Living Situation: Spouse current occupational status: retired current occupation: retired from career as manager financial systems How many Children do You have: 3 Other Information That Helps Us Care for You: No Feels Safe at Home: Yes Safety Concerns: Feels Safe At This Time Childhood Exposure to Second-Hand Smoke: Yes caffeine: Yes (coffee) during the past year weight has: remained stable Dental Care, Regularly: Yes Physical Activity Frequency: Daily Seatbelt Use: always Sunscreen Use: Yes Assistive Devices: None Review of Systems Review of Systems: Constitutional: No fever, sweats or chills Eyes: No diplopia, no worsening or blurred vision ENT: normal hearing, no trouble swallowing Respiratory: SOB with activity over the past week; No cough, sputum, dyspnea at rest Cardiovascular: chest pain after physical activity; no tightness or palpitations Abdomen: abdominal pain sometimes with the chest pain; no nausea, vomiting, diarrhea or constipation Musculoskeletal: intermittent b/l LE swelling over the past 2 months alleivated with elevation; no joint pain, calf pain Neurologic: No weakness, numbness/tingling, or balance problems Psychiatric: No acute anxiety or depression Skin: No rash or itch Physical Exam Physical Exam: General: awake, alert, no apparent distress Head: Normocephalic, atraumatic ENT: PERRL, EOMI, no pharyngeal exudate, mucous membranes moist Chest: Clear to auscultation, on room air, no adventitious breath sounds Cardiac: Regular rate and rhythm, no murmur, no JVD, normal peripheral pulses, good capillary refill Abdominal: NABS x 4 quadrants, soft, nontender to palpation, no rebound, guarding or tenderness Extremities: Normal inspection, no peripheral edema or erythema, calfs nontender to palpation Psych: Normal mood and affect Neuro: AAO x 3, strength intact bilaterally and rated 5/5, no motor deficits, speech is clear, no peripheral sensory deficits Skin: no rash or erythema Results & Data Results & Data ([facility]) Vital Signs (Past 12 Hours) Vital Signs Temp Pulse Pulse Resp BP BP Pulse Ox 05/04/21 18:00 70 16 158/98 H 99 05/04/21 16:47 133/83 05/04/21 16:44 78 16 99 05/04/21 14:47 36.9 C 79 19 134/80 97 Laboratory Results Abnormal lab results 05/04/21 Range/Units 14:59 RBC 4.04 L (4.2-5.4) M/uL Hgb 11.6 L (12.0-16.0) g/dL Hct 35.3 L (37-47) % RDW Std Deviation 52.0 H (36.4-46.3) fL RDW Coeff of Sid 16.2 H (11.5-14.5) % Diagnostic Findings Chest X-Ray 05/04/21 14:58 XR chest 2V PA/lateral HISTORY: 70 years-old Female sob, cp acute shortness of breath with atypical chest pain COMPARISON: None TECHNIQUE: PA and lateral views of the chest FINDINGS: The cardiomediastinal and hilar silhouettes are within normal limits. Hiatal hernia. No pneumothorax, pleural effusion, airspace consolidation or overt pulmonary edema. The bones appear grossly intact. Unchanged mild extra scoliosis of the midthoracic spine. IMPRESSION: 1. No acute process. 2. Hiatal hernia. ECG Additional Comments: 1.) Normal sinus rhythm, Minimal voltage criteria for LVH, may be normal variant Borderline ECG When compared with ECG of 12-AUG-2018 11:19, No significant change was found 2.) Normal sinus rhythm, Left axis deviation Abnormal ECG When compared with ECG of 04-MAY-2021 14:53, (unconfirmed) No significant change was found Code Status & VTE Plan Code Status DNR/DNI. VTE Prophylaxis Plan VTE Prophylaxis will be ordered: Yes Supervising Physician Co-Signing Physician Notes Attending Attestation & Admission Note: Pt seen/examined, chart reviewed, care plan d/w KAIDEN Muñiz. I agree w/ the hale components of her documentation. Pleasant 70yo female - h/o HTN, hyperlipidemia, hiatal hernia, and family Hx CAD - presenting with multiple episodes of intermittent left-sided chest heaviness x 1 week. Some have occurred at rest, had 1 episode while laying down overnight, and some occur shortly after walking. +dyspnea when the heaviness occurs. No true pleuritic component, but when she exhales "She can feel the heaviness deep in the chest." Some radiation to the Left arm on a few occasions. No burping/belching/vomiting. No recent travel. In the ER nitro SL x 1 allowed minimal relief of symptoms. Despite constant, recurrent episodes her EKG is unchanged in the ER, and trops thus far are negative. She has had good appetite of late. PMH, PSH, allergies, meds, sochx, famhx - reviewed VSS, afebrile, o2 sats wnl gen - NAD neck - no JVD vascular - radial pulses 2+ b/l / symmetric heart - RRR, s1 s2, no murmur lungs - CTA b/l chest - no reproducible chest wall discomfort to palpation abd - soft NT ND BS+ ext - no edema, foot pulses 2+ b/l labs reviewed mild normocytic anemia trop neg bmp wnl cxr wnl EKG - my reading - NSR, no ST changes except lead III with nonspecific T wave change, left axis deviation CTA chest - large liver cyst, large hiatal hernia; no PEs; no dissection or pneumonia A/P: 1. recurrent episodes of chest "heaviness" - despite high frequency of these spells her troponins are negative and EKGs do not show ischemic changes. No full response to nitrates. She is hemodynamically stable. Obtained CTA chest due to recent COVID (late February) -- no PE. No dissection. Very large hiatal hernia. Very large liver cyst. Keep on tele overnight. 1 more troponin. Proceed with stress echo. If stress is negative then perhaps symptoms are indeed from the hiatal hernia/reflux. 2. Anemia - recheck Fe studies in am. h/o Fe def in the past. 3. hiatal hernia - start PPI twice daily. Add carafate if needed. GI cocktail x 1 tonight for quick relief of symptoms if they are indeed upper GI in origin. Gil Restrepo MD PG Care Time/CCT Total # of Minutes Spent Total Time Spent with Patient: Total time spent is greater than 50% in coordination of care (as documented) at patient's floor/unit and/or counseling patient: Coding Level of Care Code INT OBSERVATION CARE 70M LVL 3 Diagnoses Precordial chest pain R07.2 Hiatal hernia K44.9 Hyperlipidemia E78.5 Hypertension I10 Insomnia G47.00 Iron deficiency anemia D50.9 Obstructive sleep apnea G47.33
[2021-05-04] MEDS ORDERED: NITROGLYCERIN SL 0.4 MG/TAB TAB SL STA (18:35)
[2021-05-04] MEDS ORDERED: NITROGLYCERIN SL 0.4 MG/TAB TAB ONE (18:48)
[2021-05-04] MEDS ORDERED: NITROGLYCERIN 2% OINTMENT 30GM TUBE EXT STA (19:04)
[2021-05-04] MEDS ORDERED: ALUMINUM/MAGNESIUM SUSP 18 ML, LIDOCAINE VISCOUS 2% SOLN 6 ML, BARCODE IDENTIFIER 1 EA PO ONE (19:37)
[2021-05-04] MEDS ORDERED: EPINEPHrine ADULT AUTO-INJECT 0.3 MG SYR IM PRN (19:55)
[2021-05-04] MEDS ORDERED: ONDANSETRON INJ 2 MG/ML 2 ML VIAL IV PRN (19:55)
[2021-05-04] MEDS ORDERED: ZOLPIDEM TARTRATE 5 MG TAB PO PRN (19:55)
[2021-05-04] MEDS ORDERED: NITROGLYCERIN SL 0.4 MG/TAB TAB SL PRN (19:55)
[2021-05-04] MEDS ORDERED: POLYETHYLENE (MIRALAX) 17 GM PACK PO PRN (19:55)
[2021-05-04] MEDS ORDERED: ACETAMINOPHEN 325 MG TAB PO PRN (19:55)
[2021-05-04] MEDS: ENOXAPARIN INJ 40 MG/0.4 ML SYR SQ SCH (21:37)
[2021-05-04] MEDS ORDERED: OPTIRAY 320 125ml IV ONE (22:09)
[2021-05-04] MEDS: DOXEPIN HCL 10 MG CAPSULE PO SCH (22:41)
[2021-05-05] MEDS: PANTOprazole 40 MG TAB PO SCH ×3 (00:32→21:42)
[2021-05-05 03:18] LABS: Basophils # (auto) 0.03 K/uL (0-0.2); Basophils % (auto) 0.5 %; Eosinophils # (auto) 0.14 K/uL (0-0.5); Eosinophils % (auto) 2.4 %; Hematocrit (blood only) 33.2 % (37-47); Hemoglobin 10.7 g/dL (12.0-16.0); Lymphocytes # (auto) 2.54 K/uL (1.2-3.4); Lymphocytes % (auto) 44.3 %; Mean Corpuscular Hemoglobin 28.5 pg (25-34); Mean Corpuscular Hgb Conc 32.2 g/dL (32-36); Mean Corpuscular Volume 88.5 fL (80-100); Mean Platelet Volume 8.8 fL (7.4-10.4); Monocytes # (auto) 0.56 K/uL (0.11-0.59); Monocytes % (auto) 9.8 %; Neutrophils # (auto) 2.47 K/uL (1.4-6.5); Platelet Count 257 K/uL (130-400); RDW Coefficient of Variation 16.2 % (11.5-14.5); RDW Standard Deviation 52.1 fL (36.4-46.3); Red Blood Count 3.75 M/uL (4.2-5.4); White Blood Count 5.74 K/uL (4.8-10.8)
[2021-05-05 03:42] LABS: Anion Gap 5 (3-11); BUN Creatinine Ratio 20.4 (10-20); Blood Urea Nitrogen 19 mg/dl (6-23); Calcium 9.2 mg/dl (8.5-10.1); Carbon Dioxide 26 mmol/L (21-32); Chloride 107 mmol/L (98-107); Creatinine Clr Calc Pharmacy 48.5 ml/min; Est GFR (African American) 71.2 ml/min; Est GFR (Non-African American) 61.4 ml/min; Glucose 90 mg/dl (70-99(Fasting)); Sodium 138 mmol/L (136-145)
[2021-05-05 04:01] LABS: Troponin I < 0.03 ng/ml (0-0.04)
--- NOTE | 2021-05-05 07:10 | CT Scan Report ---
CT ANGIOGRAM OF THE CHEST CLINICAL HISTORY: Atypical chest pain. Dyspnea. COMPARISON STUDY: Chest x-ray dated 05/04/2021. Chest CT dated 01/24/2013. Abdominal CT dated 6. TECHNIQUE: Following the IV administration of 119 cc of Optiray 320, CT angiogram of the chest was pe rformed from the upper abdomen to the thoracic inlet utilizing the pulmonary embolus protocol. Images are reviewed in the axial, sagittal, and coronal planes. 3-D MIPS images are created and assessed. I V contrast was administered without complication. A dose lowering technique was utilized adhering to the principles of ALARA. CT DOSE: 252.14 mGy.cm FINDINGS: Thyroid: Imaged portions of the thyroid gland are normal in size and attenuation. Thoracic aorta: The thoracic aorta is normal in caliber and demonstrates standard 3-vessel arch anato my. No dissection is seen. Pulmonary vasculature: The pulmonary trunk is normal in caliber. There are no filling defects identif ied in main, lobar, or segmental pulmonary branches to suggest pulmonary embolus. Heart: The heart is normal in size and without pericardial effusion. Lungs and pleural spaces: A fat-containing Bochdalek hernia is noted at the right lung base. There is no airspace consolidation typical for pneumonia or pleural effusion. There is elevation of the left hemidiaphragm with bibasilar scarring/atelectasis. A 3 mm pleural-based nodule in the right lower lob e along the major fissure on image #154 is unchanged from 2013 and of doubtful significance. Mediastinum: There is no mediastinal lymphadenopathy. Bridgette: Clear. Axillae: There is no axillary lymphadenopathy. Upper abdomen: A 16.4 cm cyst largely replaces the right lobe of the liver. A 3.9 cm cyst is noted in the left hepatic lobe. There is a large hiatal hernia, with the majority the stomach located in the thorax. Skeletal structures: The skeletal structures are osteopenic. Degenerative change is noted in the thor acic spine. No lytic or blastic bony lesions are seen. IMPRESSION: 1. There is no evidence of pulmonary embolus in the main, lobar, or segmental pulmonary arteries. 2. There is no airspace consolidation or pleural effusion. 3. Large hiatal hernia. 4. A 16.4 cm cyst largely replaces the right lobe of the liver. This cyst has modestly increased in s ize dating back to 2016. 5. Additional findings as above. ACT 112: Negative or not required by law. Electronically signed by: Mal Kaplan M.D. 05/05/2021 7:07 AM
[2021-05-05 08:32] LABS: Creatinine Clr Calc Pharmacy 46.5 ml/min; Est GFR (African American) 67.6 ml/min; Est GFR (Non-African American) 58.3 ml/min
[2021-05-05] MEDS ORDERED: ASPIRIN 81 MG ECTAB PO SCH (09:00)
[2021-05-05 09:06] LABS: Ferritin 12.1 ng/ml (8-388)
[2021-05-05] MEDS: amLODIPine BESYLATE 5 MG TAB PO SCH (09:08)
[2021-05-05] MEDS ORDERED: IRON SUCROSE 200 MG in 0.9 % SODIUM CHLORIDE 100 ML IV ONE (12:00)
--- NOTE | 2021-05-05 12:01 | Hospitalist Progress Note ---
Date of Service May 05, 2021 Assessment & Plan (1) Precordial chest pain: Plan: Extensive w/u for pulmonary or cardiac disease negative. Trops all negative. Tele negative. CTA chest negative for PE or pneumonia or other lung parenchymal issues. Echo wnl. Stress test negative. All signs at this point suggest her hiatal hernia is the cause of chest symptoms. She is Fe deficient which is concerning she could have Garland lesions, gastritis or other pathology of the stomach (or esophagus) leading to her symptoms. She is FINALLY improved s/p PPI twice daily + carafate achs. plan - * I spoke with Dr Blunt from [facility] - his team will consult * EGD tomorrow * NPO after midnight tonight * diet until then * cont PPI * cont carafate (2) Hypertension: Plan: Continue amlodipine 10 mg daily. BPs largely controlled. (3) Hyperlipidemia: Plan: Stable, not on any medications currently. (4) Hiatal hernia: Plan: LARGE. Was scheduled to have surgery for this but it was postponed due to the COVID pandemic. This issue thought to be the cause of her presentation - see #1 above. (5) Insomnia: Plan: ambien HS (6) Iron deficiency anemia: Plan: Severe Fe deficiency -- ferritin =12. Start venofer - 200mg IV x 1 today; if tolerates, then 300mg tomorrow. B12/folate wnl. EGD tomorrow to look for source. (7) Obstructive sleep apnea: Plan: CPAP at night. (8) Hepatic cyst: Plan: VERY LARGE - 16cm in diameter. About the largest I have seen. [facility] can make recommendations for this. Need for surgical intervention to avoid spontaneous rupture in the future?? Despite how large I do not believe this is the cause of her presenting symptoms. (9) Gastroesophageal reflux disease: Plan: PPI twice daily as above Plan: I called and spoke with pt's - update given, questions answered Admission and Anticipated Discharge Date Admission Date: May 04, 2021 Subjective multiple visits to pt's bedside today during first visit she reported having chest heaviness off/on since last pm never got relief with any form of nitro GI cocktail "burned" and made symptoms worse? I added carafate shortly after my 1st visit and that helped her symptoms by the afternoon her chest heaviness was gone we discussed her low Fe levels she mentions she gave blood at the [employer] [facility] recently - was "Borderline" eligible to donate she does see dark stools at home does not take Fe supplementation on regular basis we discussed her CT chest findings - large hiatal hernia and VERY LARGE liver cyst pt had stress echo today and this was negative/normal did not have exertional chest symptoms with the stress test tele overnight wnl Review of Systems Review of Systems: gen - no fevers, feels better today cv - chest heaviness is resolving, no orthopnea pulm - no cough GI - no abd pain, no vomiting Physical Exam Physical Exam: gen - NAD, looks great today mouth - MMM neck - no JVD heart - RRR, s1 s2, no murmurs lungs - CTA b/l abd - soft, NT, ND, BS+ ext - no edema, pulses 2+ b/l psych - a/o x 3 Results & Data Results & Data ([facility]) Vital Signs (Past 12 Hours) Vital Signs Temp Pulse Resp BP Pulse Ox 05/05/21 07:51 36.6 C 74 18 108/62 97 05/05/21 04:32 36.9 C 62 18 102/60 96 Laboratory Results Laboratory Results - last 24 hr 05/05/21 05/05/21 07:47 07:47 Creatinine 0.97 Est Cr Clr Drug Dosing 46.5 Est GFR ( Amer) 67.6 Est GFR (Non-Af Amer) 58.3 Iron 42 TIBC 398 Unsaturated IBC 356 H Transferrin % Sat 11 L Ferritin 12.1 Folate > 22.30 Diagnostic Findings stress echo - negative; preserved EF; no wall motion abnormalities at rest or with stress PG Care Time/CCT Total # of Minutes Spent Total Time Spent with Patient: Total time spent is greater than 50% in coordination of care (as documented) at patient's floor/unit and/or counseling patient: Coding Level of Care Code 72599 Subseq Obs Care Lvl 3 Diagnoses Precordial chest pain R07.2 Hypertension I10 Hyperlipidemia E78.5 Hiatal hernia K44.9 Insomnia G47.00 Iron deficiency anemia D50.9 Obstructive sleep apnea G47.33 Hepatic cyst K76.89 Gastroesophageal reflux disease K21.9
--- NOTE | 2021-05-05 12:03 | XCELERA ---
[id number]
[2021-05-05] MEDS: SUCRALFATE 1 GM/10 ML UDC PO SCH ×3 (12:21→20:55)
--- NOTE | 2021-05-05 12:46 | Gastrointestinal Consultation ---
Date of Consultation May 05, 2021 Assessment & Plan (1) Hiatal hernia: (2) Precordial chest pain: (3) SOB (shortness of breath): (4) Hepatic cyst: (5) Iron deficiency anemia: Given the patient's large hiatus hernia, concern for possible Garland's erosions, AVM bleed or PUD. Will plan to keep patient on liquids today and NPO post midnight tonight. EGD with Dr. Blunt tomorrow for further evaluation. Continue Pantoprazole 40 mg BID. Further recommendations will be made pending results of testing. In regard to large right hepatic cyst, would recommend tertiary evaluation by hepatobiliary surgeon Dr. Shayne Veloz at [facility] in [place], [place]. Perhaps surgical coordination could be made to repair the hiatus hernia at the time the giant cyst is resected. Thank you for allowing us to participate in the care of this patient. If you have any questions or concerns, please do not hesitate to contact us. History of Present Illness Reason for Consultation: Chest Pain. GA. Large Hiatus Hernia Requesting Physician: Dr. Restrepo Attending Physician: Gil Restrepo History of Present Illness I had the pleasure of seeing Dannielle Matthews today at the request of Dr. Restrepo. As you know, she is a very pleasant 70 year-old female known to our practice due to history of GERD and HH. She was last evaluated via EGD by Dr. Woodward in 2018. She states she was in her usual state of health until she contracted COVID-19 a few months ago. Since that time, she has had some mild fatigue and GONZÁLES. She presented to her PCP's office yesterday due to new onset of intermittent substernal chest pain. She was referred for ER evaluation. Acute cardiopulmonary processes have been excluded and symptoms felt possibly related her the large hiatus hernia noted on CTE. She was also found to have a giant cyst on the right hepatic lobe measuring 16.4 cm which has demonstrated interval growth from prior CT a/p which measured the lesion at 15 x 14.5 x 11. There were no solid components or septations. She denies any abdominal pain, jaundice, pruritus, dark urine, acholic stools, melena, or hematochezia. Allergies Allergy/AdvReac Type Severity Reaction Status Date / Time bee venom protein (honey bee) Allergy Severe ANAPHYLAXIS Verified 05/04/21 13:02 doxycycline Allergy Severe GUILLAIN-BARRE Verified 05/04/21 13:02 SYNDROME Sulfa (Sulfonamide Allergy Severe RASH AND Verified 05/04/21 13:02 Antibiotics) SWELLING bupropion Allergy Intermediate RASH AND Verified 05/04/21 13:02 TROUBLE BREATHING Penicillins Allergy Mild RASH Verified 05/04/21 13:02 escitalopram [From Lexapro] Allergy Unknown Unknown Verified 05/04/21 13:02 mirtazapine Allergy Unknown SWELLING Verified 05/04/21 13:02 prednisone AdvReac Severe Anxiety, Verified 05/04/21 13:02 headaches Home Medications Medication Instructions Recorded Confirmed Type amlodipine 10 mg tablet 10 mg PO QAM #90 tab 01/19/21 05/04/21 Rx epinephrine 0.3 mg/0.3 mL 0.3 mg IM Q3H PRN #2 ea 03/02/21 05/04/21 Rx injection, auto-injector (EpiPen) doxepin 10 mg capsule 10 mg PO HS #30 cap 05/04/21 05/04/21 Rx zolpidem 5 mg tablet 5 mg PO HS PRN 05/04/21 05/04/21 History Patient History Medical History MAAME positive Contact dermatitis Encopresis, nonorganic origin Esophageal dysphagia (2017) H/O Guillain-[place] syndrome X2 Hearing deficit Hiatal hernia Paresthesia (09/12/10) Venom-induced anaphylaxis Surgical History History of arthroscopy of left knee May 2001-Dr. Arndt History of bilateral tubal ligation History of colonoscopy fiberoptic complete History of dilatation and curettage History of esophagogastroduodenoscopy (EGD) History of tooth extraction History of total abdominal hysterectomy and bilateral salpingo-oophorectomy 1995 History of tubal ligation Family History Family/Other Multiple benign polyps of large intestine Diabetes Heart disease Hypertension Stroke syndrome Mother Pure hypercholesterolemia Thyroid disorder Heart disease Hypertension Breast cancer, Onset Age: 78 Sinus disorder Asthma FHx: allergies FHx: deafness or hearing loss Aunt Heart disease Hypertension Stroke syndrome Sinus disorder FHx: deafness or hearing loss Grandmother Hypertension Myocardial infarction Family/Other Hypertension Family/Other Breast cancer genetic testing negative Grandfather Asthma Sister FHx: allergies Breast cancer Stroke Brother FHx: allergies Family/Other Breast cancer Daughter Breast cancer, Onset Age: 49 undergoing genetic testing currently Denies family history of Ovarian cancer Prostate cancer Colorectal cancer Social History Smoking Status: Never smoker Second Hand Exposure: Yes (STEPFATHER SMOKED); Hx Alcohol Use: No Hx Substance Use: No Preferred Language: Serbian Communication Ability: Effective Visual Impairment: Limited Hearing Ability: Use of Hearing Aid Machine Setter Automatic Required: No Beliefs That Will Affect Care: None marital status: Current Living Situation: Spouse current occupational status: retired current occupation: retired from career as associate financial planner How many Children do You have: 3 Other Information That Helps Us Care for You: No Feels Safe at Home: Yes Safety Concerns: Feels Safe At This Time Childhood Exposure to Second-Hand Smoke: Yes caffeine: Yes (coffee) during the past year weight has: remained stable Dental Care, Regularly: Yes Physical Activity Frequency: Daily Seatbelt Use: always Sunscreen Use: Yes Assistive Devices: None Review of Systems Constitutional: as per Subjective / HPI; no fever and no chills Respiratory: as per Subjective / HPI Cardiovascular: as per Subjective / HPI Gastrointestinal: as per Subjective / HPI Psychiatric: as per Subjective / HPI Physical Exam Constitutional: WD/WN, vitals as above Eyes: + anicteric sclerae and EOM intact bilaterally Neck: normal visual inspection Respiratory: normal respiratory effort, lungs clear to auscultation Cardiovascular: Rate/Rhythm: regular rate and regular rhythm Gastrointestinal (Abdomen): Inspection/Auscultation: abdomen normal to inspection; abdomen not distended Percussion/Palpation: abdomen soft; abdomen nontender Musculoskeletal: Extremities: extremities normal to inspection Skin: + pallor Psychiatric: A+Ox3, euthymic affect Results & Data ([facility]) Vital Signs (Past 12 Hours) Vital Signs Temp Pulse Resp BP Pulse Ox 05/05/21 07:51 36.6 C 74 18 108/62 97 05/05/21 04:32 36.9 C 62 18 102/60 96 Diagnostic Findings Laboratory Results WBC 5.74 K/uL (4.8-10.8) 05/05/21 02:41 RBC 3.75 M/uL (4.2-5.4) L 05/05/21 02:41 Hgb 10.7 g/dL (12.0-16.0) L 05/05/21 02:41 Hct 33.2 % (37-47) L 05/05/21 02:41 MCV 88.5 fL (80-100) 05/05/21 02:41 MCH 28.5 pg (25-34) 05/05/21 02:41 MCHC 32.2 g/dL (32-36) 05/05/21 02:41 RDW Std Deviation 52.1 fL (36.4-46.3) H 05/05/21 02:41 RDW Coeff of Sid 16.2 % (11.5-14.5) H 05/05/21 02:41 Plt Count 257 K/uL (130-400) 05/05/21 02:41 MPV 8.8 fL (7.4-10.4) 05/05/21 02:41 Immature Gran % (Auto) 0.0 % 05/05/21 02:41 Neut % (Auto) 43.0 % 05/05/21 02:41 Lymph % (Auto) 44.3 % 05/05/21 02:41 [place] % (Auto) 9.8 % 05/05/21 02:41 Eos % (Auto) 2.4 % 05/05/21 02:41 Baso % (Auto) 0.5 % 05/05/21 02:41 Neut # (Auto) 2.47 K/uL (1.4-6.5) 05/05/21 02:41 Lymph # (Auto) 2.54 K/uL (1.2-3.4) 05/05/21 02:41 [place] # (Auto) 0.56 K/uL (0.11-0.59) 05/05/21 02:41 Eos # (Auto) 0.14 K/uL (0-0.5) 05/05/21 02:41 Baso # (Auto) 0.03 K/uL (0-0.2) 05/05/21 02:41 Immature Gran # (Auto) 0.00 K/uL (0.00-0.02) 05/05/21 02:41 PT 10.8 Seconds (9.0-12.0) 05/04/21 14:59 INR 1.0 (0.9-1.1) 05/04/21 14:59 APTT 27.4 Seconds (21.0-31.0) 05/04/21 14:59 PTT Ratio 1.0 05/04/21 14:59 Sodium 138 mmol/L (136-145) 05/05/21 02:41 Potassium 4.0 mmol/L (3.5-5.1) 05/05/21 02:41 Chloride 107 mmol/L (98-107) 05/05/21 02:41 Carbon Dioxide 26 mmol/L (21-32) 05/05/21 02:41 Anion Gap 5 (3-11) 05/05/21 02:41 BUN 19 mg/dl (6-23) 05/05/21 02:41 Creatinine 0.97 mg/dl (0.6-1.2) 05/05/21 07:47 Est Cr Clr Drug Dosing 46.5 ml/min 05/05/21 07:47 Est GFR ( Amer) 67.6 ml/min 05/05/21 07:47 Est GFR (Non-Af Amer) 58.3 ml/min 05/05/21 07:47 BUN/Creatinine Ratio 20.4 (10-20) H 05/05/21 02:41 Glucose 90 mg/dl (70-99(Fasting)) 05/05/21 02:41 Calcium 9.2 mg/dl (8.5-10.1) 05/05/21 02:41 Magnesium 2.1 mg/dl (1.7-2.4) 05/04/21 14:59 Iron 42 mcg/dl (35-150) 05/05/21 07:47 TIBC 398 mcg/dl (250-450) 05/05/21 07:47 Unsaturated IBC 356 mcg/dl (155-355) H 05/05/21 07:47 Transferrin % Sat 11 % (15-50) L 05/05/21 07:47 Ferritin 12.1 ng/ml (8-388) 05/05/21 07:47 Total Bilirubin 0.4 mg/dl (0.2-1.0) 05/04/21 14:59 AST 24 U/L (13-39) 05/04/21 14:59 ALT 17 U/L (7-52) 05/04/21 14:59 Alkaline Phosphatase 66 U/L (34-104) 05/04/21 14:59 Troponin I < 0.03 ng/ml (0-0.04) 05/05/21 02:41 Total Protein 6.9 gm/dl (6.0-8.3) 05/04/21 14:59 Albumin 4.3 gm/dl (3.4-5.0) 05/04/21 14:59 Globulin 2.6 gm/dl (2.5-4.0) 05/04/21 14:59 Albumin/Globulin Ratio 1.7 (0.9-2) 05/04/21 14:59 Folate > 22.30 ng/ml (>5.38) 05/05/21 07:47 SARS-CoV-2, RNA, NAAT NEGATIVE (NEGATIVE) 05/04/21 17:32 Impressions Chest X-Ray 05/04/21 14:58 XR chest 2V PA/lateral HISTORY: 70 years-old Female sob, cp acute shortness of breath with atypical chest pain COMPARISON: None TECHNIQUE: PA and lateral views of the chest FINDINGS: The cardiomediastinal and hilar silhouettes are within normal limits. Hiatal hernia. No pneumothorax, pleural effusion, airspace consolidation or overt pulmonary edema. The bones appear grossly intact. Unchanged mild extra scoliosis of the midthoracic spine. IMPRESSION: 1. No acute process. 2. Hiatal hernia. ACT 112: Negative or not required by law. The above report was generated using voice recognition software. It may contain grammatical, syntax or spelling errors. Electronically signed by: Jt Moore M.D. 05/04/2021 3:32 PM Chest CTA 05/04/21 21:45 CT ANGIOGRAM OF THE CHEST CLINICAL HISTORY: Atypical chest pain. Dyspnea. COMPARISON STUDY: Chest x-ray dated 05/04/2021. Chest CT dated 01/24/2013. Abdominal CT dated 11/12/2015. TECHNIQUE: Following the IV administration of 119 cc of Optiray 320, CT angiogram of the chest was performed from the upper abdomen to the thoracic inlet utilizing the pulmonary embolus protocol. Images are reviewed in the ax ial, sagittal, and coronal planes. 3-D MIPS images are created and assessed. IV contrast was administered without complication. A dose lowering technique was utilized adhering to the principles of ALARA. CT DOSE: 252.14 mGy.cm FINDINGS: Thyroid: Imaged portions of the thyroid gland are normal in size and attenuation. Thoracic aorta: The thoracic aorta is normal in caliber and demonstrates standard 3-vessel arch anatomy. No dissection is seen. Pulmonary vasculature: The pulmonary trunk is normal in caliber. There are no filling defects identified in main, lobar, or segmental pulmonary branches to suggest pulmonary embolus. Heart: The heart is normal in size and without pericardial effusion. Lungs and pleural spaces: A fat-containing Bochdalek hernia is noted at the right lung base. There is no airspace consolidation typical for pneumonia or pleural effusion. There is elevation of the left hemidiaphragm with bibasilar scarring/atelectasis. A 3 mm pleural-based nodule in the right lower lobe along the major fissure on image #154 is unchanged from 2013 and of doubtful significance. Mediastinum: There is no mediastinal lymphadenopathy. Bridgette: Clear. Axillae: There is no axillary lymphadenopathy. Upper abdomen: A 16.4 cm cyst largely replaces the right lobe of the liver. A 3.9 cm cyst is noted in the left hepatic lobe. There is a large hiatal hernia, with the majority the stomach located in the thorax. Skeletal structures: The skeletal structures are osteopenic. Degenerative change is noted in the thoracic spine. No lytic or blastic bony lesions are seen. IMPRESSION: 1. There is no evidence of pulmonary embolus in the main, lobar, or segmental pulmonary arteries. 2. There is no airspace consolidation or pleural effusion. 3. Large hiatal hernia. 4. A 16.4 cm cyst largely replaces the right lobe of the liver. This cyst has modestly increased in size dating back to 2016. 5. Additional findings as above. ACT 112: Negative or not required by law. Electronically signed by: Mal Kaplan M.D. 05/05/2021 7:07 AM PG Care Time/CCT Total # of Minutes Spent Total Time Spent with Patient: Total time spent is greater than 50% in coordination of care (as documented) at patient's floor/unit and/or counseling patient: Coding Level of Care Code 20673 Initial Inpt Care Lvl 3 Diagnoses Hiatal hernia K44.9 Precordial chest pain R07.2 SOB (shortness of breath) R06.02 Hepatic cyst K76.89 Iron deficiency anemia D50.9
[2021-05-05] MEDS: ENOXAPARIN INJ 40 MG/0.4 ML SYR SQ SCH (20:54)
--- NOTE | 2021-05-05 21:04 | Electrocardiogram Report ---
Test Reason : Blood Pressure : / mmHG Vent. Rate : 077 BPM Atrial Rate : 077 BPM P-R Int : 182 ms QRS Dur : 084 ms QT Int : 366 ms P-R-T Axes : 065 -18 027 degrees QTc Int : 414 ms Poor data quality, interpretation may be adversely affected Normal sinus rhythm Minimal voltage criteria for LVH, may be normal variant Borderline ECG When compared with ECG of 12-AUG-2018 11:19, No significant change was found Confirmed by Girma Brantley ([id number]) on 05/05/2021 9:04:28 PM Referred By: Confirmed By:Girma Brantley
--- NOTE | 2021-05-05 21:35 | Electrocardiogram Report ---
Test Reason : Blood Pressure : / mmHG Vent. Rate : 095 BPM Atrial Rate : 095 BPM P-R Int : 182 ms QRS Dur : 084 ms QT Int : 370 ms P-R-T Axes : 035 -36 019 degrees QTc Int : 464 ms Normal sinus rhythm Left axis deviation Abnormal ECG When compared with ECG of 04-MAY-2021 14:53, No significant change was found Confirmed by Girma Brantley ([id number]) on 05/05/2021 9:34:32 PM Referred By: Haley Rayo Confirmed By:Girma Brantley
[2021-05-05] MEDS: DOXEPIN HCL 10 MG CAPSULE PO SCH (21:42)
[2021-05-06 06:27] LABS: Hematocrit (blood only) 34.8 % (37-47); Hemoglobin 11.2 g/dL (12.0-16.0); Mean Corpuscular Hemoglobin 28.5 pg (25-34); Mean Corpuscular Hgb Conc 32.2 g/dL (32-36); Mean Corpuscular Volume 88.5 fL (80-100); Mean Platelet Volume 9.2 fL (7.4-10.4); Platelet Count 241 K/uL (130-400); RDW Coefficient of Variation 16.2 % (11.5-14.5); Red Blood Count 3.93 M/uL (4.2-5.4); White Blood Count 4.86 K/uL (4.8-10.8)
[2021-05-06 06:51] LABS: Creatinine Clr Calc Pharmacy 44.7 ml/min; Est GFR (African American) 64.4 ml/min; Est GFR (Non-African American) 55.6 ml/min
--- NOTE | 2021-05-06 08:36 | History & Physical Bridge Note ---
Date of Service May 06, 2021 History & Physical Bridge Note I have examined the patient, reviewed the History & Physical and in the interval since the performance of the History & Physical I have noted the following changes of clinical significance: no changes noted Proceed with EGD. risks/benefits and procedure discussed with patient, who agrees to proceed
[2021-05-06] MEDS ORDERED: IRON SUCROSE 300 MG in SODIUM CHLORIDE 0.9% 250 ML IV ONE (09:00)
--- NOTE | 2021-05-06 09:15 | Anesthesiology Consultation ---
Date of Service May 06, 2021 Assessment & Plan (1) Encounter for pre-operative examination: History Surgery Operation Date: 05/06/21 16:15 Proposed Procedures p Esophagogastroduodenoscopy Dr. Jose Raul Blunt MD Height/Weight Height: 5 ft 2 in Weight: 65.4 kg Allergies Allergy/AdvReac Type Severity Reaction Status Date / Time bee venom protein (honey bee) Allergy Severe ANAPHYLAXIS Verified 05/04/21 13:02 doxycycline Allergy Severe GUILLAIN-BARRE Verified 05/04/21 13:02 SYNDROME Sulfa (Sulfonamide Allergy Severe RASH AND Verified 05/04/21 13:02 Antibiotics) SWELLING bupropion Allergy Intermediate RASH AND Verified 05/04/21 13:02 TROUBLE BREATHING Penicillins Allergy Mild RASH Verified 05/04/21 13:02 escitalopram [From Lexapro] Allergy Unknown Unknown Verified 05/04/21 13:02 mirtazapine Allergy Unknown SWELLING Verified 05/04/21 13:02 prednisone AdvReac Severe Anxiety, Verified 05/04/21 13:02 headaches Medications Home Medications Medication Instructions Recorded Confirmed Last Taken amlodipine 10 mg tablet 10 mg PO QAM #90 tab 01/19/21 05/04/21 Unknown epinephrine 0.3 mg/0.3 mL 0.3 mg IM Q3H PRN #2 ea 03/02/21 05/04/21 Unknown injection, auto-injector (EpiPen) doxepin 10 mg capsule 10 mg PO HS #30 cap 05/04/21 05/04/21 Unknown zolpidem 5 mg tablet 5 mg PO HS PRN 05/04/21 05/04/21 Unknown Active Medications Generic Name Dose Route Start Last Admin Trade Name Freq PRN Reason Stop Dose Admin Acetaminophen 650 mg 05/04/21 19:55 05/05/21 04:13 Acetaminophen 325 Mg Tab PO 06/03/21 19:54 650 mg Q4H PRN Administration Pain or Fever Amlodipine Besylate 10 mg 05/05/21 09:00 05/05/21 09:08 Amlodipine Besylate 5 Mg Tab PO 06/04/21 08:59 10 mg QAM TENISHA Administration Doxepin HCl 10 mg 05/04/21 21:00 05/05/21 21:42 Doxepin Hcl 10 Mg Capsule PO 06/03/21 20:59 10 mg HS TENISHA Administration Enoxaparin Sodium 40 mg 05/04/21 20:30 05/05/21 20:54 Enoxaparin Inj 40 Mg/0.4 Ml Syr SQ 06/03/21 20:29 40 mg Q24H TENISHA Administration Pantoprazole Sodium 40 mg 05/04/21 23:45 05/05/21 21:42 Pantoprazole 40 Mg Tab PO 06/03/21 23:44 40 mg BID TENISHA Administration Sucralfate 1 gm 05/05/21 13:00 05/05/21 20:55 Sucralfate 1 Gm/10 Ml Udc PO 06/04/21 12:59 1 gm QID TENISHA Administration NPO Date Last Intake of Fluids: 05/05/21 Time Last Intake of Fluids: 23:00 Date Last Intake of Solids: 05/04/21 Time Last Intake of Solids: 14:30 Past Medical History Medical History MAAME positive Contact dermatitis Encopresis, nonorganic origin Esophageal dysphagia (2017) H/O Guillain-[place] syndrome X2 Hearing deficit Hiatal hernia Paresthesia (09/12/10) Venom-induced anaphylaxis Past Family History Family History Family/Other Multiple benign polyps of large intestine Diabetes Heart disease Hypertension Stroke syndrome Mother Pure hypercholesterolemia Thyroid disorder Heart disease Hypertension Breast cancer, Onset Age: 78 Sinus disorder Asthma FHx: allergies FHx: deafness or hearing loss Aunt Heart disease Hypertension Stroke syndrome Sinus disorder FHx: deafness or hearing loss Grandmother Hypertension Myocardial infarction Family/Other Hypertension Family/Other Breast cancer genetic testing negative Grandfather Asthma Sister FHx: allergies Breast cancer Stroke Brother FHx: allergies Family/Other Breast cancer Daughter Breast cancer, Onset Age: 49 undergoing genetic testing currently Denies family history of Ovarian cancer Prostate cancer Colorectal cancer Past Surgical History Surgical History History of arthroscopy of left knee May 2001-Dr. Arndt History of bilateral tubal ligation History of colonoscopy fiberoptic complete History of dilatation and curettage History of esophagogastroduodenoscopy (EGD) History of tooth extraction History of total abdominal hysterectomy and bilateral salpingo-oophorectomy 1995 History of tubal ligation Social History Smoking Status: Never smoker Hx Alcohol Use: No Hx Substance Use: No substance use type: sedatives and prescription drug Substance Use Type Other:: sleep aid Physical Exam Vital Signs Last Vital Signs Temp 37.2 C 05/06/21 09:05 Pulse 66 05/06/21 09:05 Resp 16 05/06/21 09:05 BP 139/80 05/06/21 09:05 Pulse Ox 99 05/06/21 09:05 Testing Laboratory Results 05/06/21 05:36 05/06/21 05:36 PT 10.8 Seconds (9.0-12.0) 05/04/21 14:59 INR 1.0 (0.9-1.1) 05/04/21 14:59 APTT 27.4 Seconds (21.0-31.0) 05/04/21 14:59 Electrocardiogram Date: 05/05/21 Normal sinus rhythm Left axis deviation Abnormal ECG When compared with ECG of 04-MAY-2021 14:53, No significant change was found Confirmed by Girma Brantley ([id number]) on 05/05/2021 9:34:32 PM Chest X-Ray Date: 05/04/21 IMPRESSION: 1. No acute process. 2. Hiatal hernia. Stress Test Date: 05/05/21 negative for ischemia
[2021-05-06] MEDS ORDERED: PROPOFOL IV EMULSION 10 MG/ML 20 ML VIAL IV ONE (09:18)
[2021-05-06] MEDS ORDERED: ONDANSETRON INJ 2 MG/ML 2 ML VIAL ONE (09:18)
[2021-05-06] MEDS ORDERED: LIDOCAINE 2% 2 ML VIAL/AMP(20MG/ML) INFIL ONE (09:18)
--- NOTE | 2021-05-06 10:03 | GI REPORT ---
Patient Name: Dannielle Matthews Procedure Date: 05/06/2021 9:21 AM Date of : 1950 Admit Type: Inpatient Age: 70 Gender: Female Attending MD: Seun Blunt MD Procedure: Upper GI endoscopy Providers: Seun Blunt MD Referring MD: Haley Rayo Md Indications: Iron deficiency anemia secondary to chronic blood loss Medicines: Monitored Anesthesia Care Complications: No immediate complications. Estimated blood loss: None. Estimated Blood Loss: Estimated blood loss: none. Procedure: Pre-Anesthesia Assessment: - Prior Anticoagulants: The patient has taken no previous anticoagulant or antiplatelet agents. - ASA Grade Assessment: II - A patient with mild systemic disease. After obtaining informed consent, the endoscope was passed under direct vision. Throughout the procedure, the patient's blood pressure, pulse, and oxygen saturations were monitored continuously. The Endoscope was introduced through the mouth, and advanced to the second part of duodenum. The upper GI endoscopy was accomplished without difficulty. The patient tolerated the procedure well. Findings: A large hiatal hernia was present. Diffuse mild inflammation characterized by erythema was found in the stomach. Biopsies were taken with a cold forceps for Helicobacter pylori testing. Estimated blood loss: none. The duodenal bulb and second portion of the duodenum were normal. Biopsies for histology were taken with a cold forceps for evaluation of celiac disease. Estimated blood loss: none. Impression: - Large hiatal hernia. - Gastritis. Biopsied. - Normal duodenal bulb and second portion of the duodenum. Biopsied. Recommendation: - Resume previous diet today. - Await pathology results. - Return patient to [facility] for ongoing care. Seun Blunt MD 05/06/2021 10:02:49 AM This report has been signed electronically. Note Initiated On: 05/06/2021 9:21 AM Number of Addenda: 0 I attest to the content of the Intraoperative Record and orders documented therein, exceptions below {[id number]}
[2021-05-06] MEDS: PANTOprazole 40 MG TAB PO SCH (10:41)
[2021-05-06] MEDS: SUCRALFATE 1 GM/10 ML UDC PO SCH ×3 (10:42→17:02)
[2021-05-06] MEDS: amLODIPine BESYLATE 5 MG TAB PO SCH (10:42)
--- NOTE | 2021-05-06 12:39 | Anesthesiology Progress Note ---
Date of Service May 06, 2021 Anesthesia Post Procedure Vital Signs Vital Signs: Temp Pulse Pulse Resp BP BP Pulse Ox 05/06/21 11:45 36.7 C 57 L 16 127/71 96 05/06/21 11:17 36.5 C 61 15 152/68 H 98 05/06/21 10:37 36.5 C 70 16 149/82 H 98 05/06/21 10:25 61 16 125/73 99 05/06/21 10:10 74 16 127/73 99 05/06/21 09:55 73 18 97/63 L 97 05/06/21 09:05 37.2 C 66 16 139/80 99 05/06/21 07:30 36.6 C 78 15 132/80 98 05/06/21 02:01 36.6 C 82 16 141/82 H 96 05/05/21 23:10 36.6 C 67 18 120/77 98 05/05/21 15:22 36.7 C 68 20 124/76 94 Transfer of Care Handoff Completed per policy Notes Mental Status: alert / awake / arousable and participated in evaluation Patient Amnestic to Procedure: Yes Nausea / Vomiting: adequately controlled Pain: adequately controlled Airway Patency, RR, SpO2: stable & adequate BP & HR: stable & adequate Hydration State: stable & adequate Anesthetic Complications: no major complications apparent and Pt Satisfied with anesthetic care
--- NOTE | 2021-05-06 16:54 | Discharge Summary ---
Date of Service date of admission - May 04, 2021 date of discharge - May 06, 2021 Admission HPI Per Admitting Provider Patient is 70-year-old female with a past medical history of HTN, HLD, hiatal hernia, iron deficiency anemia, and insomnia who presents today with intermittent episodes of chest pain and shortness of breath. Patient states she first noticed it last week when she experienced left-sided chest pressure with radiation to her left shoulder shortly after going up and down stairs at home. The pressure eventually went away with rest, however patient continued to experience bouts of this several times since then, accompanied by slight shortness of breath. She does not specifically notice it while engaging in activity, however she becomes aware of it once she has a moment to sit down. She woke up with the same chest pressure this morning, but it had gone away by the time she was at her PCPs office for a regularly scheduled wellness visit. She has not experienced chest pressure like this before, but has occasional upper abdominal pain due to a large hiatal hernia, which was supposed to be surgically repaired prior to the onset of the COVID-19 pandemic. She has occasional episodes of sour brash and has previously had to take Tums and PPIs for GERD in the past, however has not been an issue for recently. She denies fever/chills, diaphoresis, dyspnea at rest, palpitations, cough, radiation of chest pain to right arm, back, neck, or jaw, denies nausea/vomiting, diarrhea, constipation, lightheadedness, weakness, syncope. Denies a personal history of cardiac or pulmonary disease or previous VTE, does have a family history of aneurysm, CAD, and a-fib. She did have COVID in February and felt very ill, but did not require hospitalization and feels she has made a full recovery. Principal Diagnosis Chest pain - likely 2nd to large hiatal hernia with gastritis Discharge Exam gen - NAD, pleasant mouth - MMM neck - no JVD heart - RRR, s1 s2, no murmurs lungs - CTA b/l abd - soft, NT, ND, BS+ ext - no edema, pulses 2+ b/l psych - a/o x 3 Discharge Data Allergies Allergy/AdvReac Type Severity Reaction Status Date / Time bee venom protein (honey bee) Allergy Severe ANAPHYLAXIS Verified 05/12/21 09:43 doxycycline Allergy Severe GUILLAIN-BARRE Verified 05/12/21 09:43 SYNDROME Sulfa (Sulfonamide Allergy Severe RASH AND Verified 05/12/21 09:43 Antibiotics) SWELLING bupropion Allergy Intermediate RASH AND Verified 05/12/21 09:43 TROUBLE BREATHING Penicillins Allergy Mild RASH Verified 05/12/21 09:43 escitalopram [From Lexapro] Allergy Unknown Unknown Verified 05/12/21 09:43 mirtazapine Allergy Unknown SWELLING Verified 05/12/21 09:43 prednisone AdvReac Severe Anxiety, Verified 05/12/21 09:43 headaches Consultations [facility] Procedures Performed Operation Date: 05/06/21 16:15 Actual Procedures p EGD Biopsy Cytology - Seun Blunt MD Findings: A large hiatal hernia was present. Diffuse mild inflammation characterized by erythema was found in the stomach. Biopsies were taken with a cold forceps for Helicobacter pylori testing. Estimated blood loss: none. The duodenal bulb and second portion of the duodenum were normal. Biopsies for histology were taken with a cold forceps for evaluation of celiac disease. Estimated blood loss: none. Echocardiogram - * EF 60-65% * mild pulmonary HTN * no regional wall motion abnormalities Stress echocardiogram - * negative stress echo for ischemia at 102% MPHR * negative stress EKG for ischemia at 102% MPHR Ordered Studies Chest X-Ray 05/04/21 14:58 XR chest 2V PA/lateral HISTORY: 70 years-old Female sob, cp acute shortness of breath with atypical chest pain COMPARISON: None TECHNIQUE: PA and lateral views of the chest FINDINGS: The cardiomediastinal and hilar silhouettes are within normal limits. Hiatal hernia. No pneumothorax, pleural effusion, airspace consolidation or overt pulmonary edema. The bones appear grossly intact. Unchanged mild extra scoliosis of the midthoracic spine. IMPRESSION: 1. No acute process. 2. Hiatal hernia. ACT 112: Negative or not required by law. The above report was generated using voice recognition software. It may contain grammatical, syntax or spelling errors. Electronically signed by: Jt Moore M.D. 05/04/2021 3:32 PM Chest CTA 05/04/21 21:45 CT ANGIOGRAM OF THE CHEST CLINICAL HISTORY: Atypical chest pain. Dyspnea. COMPARISON STUDY: Chest x-ray dated 05/04/2021. Chest CT dated 01/24/2013. Abdominal CT dated 11/12/2015. TECHNIQUE: Following the IV administration of 119 cc of Optiray 320, CT angiogram of the chest was performed from the upper abdomen to the thoracic inlet utilizing the pulmonary embolus protocol. Images are reviewed in the axial, sagittal, and coronal planes. 3-D MIPS images are created and assessed. IV contrast was administered without complication. A dose lowering technique was utilized adhering to the principles of ALARA. CT DOSE: 252.14 mGy.cm FINDINGS: Thyroid: Imaged portions of the thyroid gland are normal in size and attenuation. Thoracic aorta: The thoracic aorta is normal in caliber and demonstrates standard 3-vessel arch anatomy. No dissection is seen. Pulmonary vasculature: The pulmonary trunk is normal in caliber. There are no filling defects identified in main, lobar, or segmental pulmonary branches to suggest pulmonary embolus. Heart: The heart is normal in size and without pericardial effusion. Lungs and pleural spaces: A fat-containing Bochdalek hernia is noted at the right lung base. There is no airspace consolidation typical for pneumonia or pleural effusion. There is elevation of the left hemidiaphragm with bibasilar scarring/atelectasis. A 3 mm pleural-based nodule in the right lower lobe along the major fissure on image #154 is unchanged from 2013 and of doubtful significance. Mediastinum: There is no mediastinal lymphadenopathy. Bridgette: Clear. Axillae: There is no axillary lymphadenopathy. Upper abdomen: A 16.4 cm cyst largely replaces the right lobe of the liver. A 3.9 cm cyst is noted in the left hepatic lobe. There is a large hiatal hernia, with the majority the stomach located in the thorax. Skeletal structures: The skeletal structures are osteopenic. Degenerative change is noted in the thoracic spine. No lytic or blastic bony lesions are seen. IMPRESSION: 1. There is no evidence of pulmonary embolus in the main, lobar, or segmental pulmonary arteries. 2. There is no airspace consolidation or pleural effusion. 3. Large hiatal hernia. 4. A 16.4 cm cyst largely replaces the right lobe of the liver. This cyst has modestly increased in size dating back to 2016. 5. Additional findings as above. ACT 112: Negative or not required by law. Electronically signed by: Mal Kaplan M.D. 05/05/2021 7:07 AM Hospital Course (1) Precordial chest pain: Chest "heaviness." Extensive w/u for pulmonary or cardiac disease negative. Troponins all negative. Telemetry negative. CTA chest negative for PE or pneumonia or other lung parenchymal issues. Resting 2D Echo wnl. Stress echocardiogram negative for ischemia. All signs suggested her hiatal hernia was the cause of her chest symptoms. Symptoms indeed finally improved then resolved s/p PPI twice daily + carafate achs. [facility] was consulted, and Dr Seun Blunt performed EGD. This showed gastritis as well as her large hiatal hernia. PUD was not found. At discharge she will take protonix 40mg BID every day along with carafate x 1 week. She will need close f/u with GI, and will need referral for hiatal hernia repair. (2) Hiatal hernia: LARGE. Was scheduled to have surgery for this 2+ years ago but it was postponed due to the COVID pandemic. This issue thought to be the cause of her presentation - see #1 above. (3) Iron deficiency anemia: Severe Fe deficiency -- ferritin =12. s/p venofer 200mg IV x 1 followed by 300mg x 1. Ideally she receives another dose of IV venofer as outpatient (300mg). B12/folate wnl. EGD with gastritis but no PUD. Discharge hemoglobin = 11.2. (4) Gastritis: As seen on EGD. PPI twice daily every day. Carafate x 1 week. (5) Gastroesophageal reflux disease: PPI twice daily as above (6) Hepatic cyst: VERY LARGE - 16cm in diameter. When patient is evaluated for her hiatal hernia perhaps the cyst can be surgically managed at the same time. [facility] to make a referral to [facility] for hiatal hernia and hepatic cyst management. (7) Hypertension: Continue amlodipine 10 mg daily. BPs largely controlled while here. (8) Hyperlipidemia: Stable, not on any medications currently. (9) Insomnia: ambien HS prn (10) Obstructive sleep apnea: CPAP at night. Total Time Total Time Spent Total Time Spent (In Minutes): 50 Discharge Plan Discharge Items Patient Disposition: Home - Self-Care Reason For Visit: CHEST PAIN Discharge Diagnosis: 1. Chest heaviness - likely due to gastritis in the setting of a large hiatal hernia. No evidence of heart disease based on echo, stress test, blood work for the heart. No blood clots in the lungs. 2. large liver cyst 3. iron deficiency anemia Condition on Discharge: Good Activity: Resume your previous activity Non-emergency contact: Primary Care Provider and Auto Electrical Technician Call non-emergency contact if: you have any medication questions, your symptoms worsen and your pain is not controlled Follow-up/Referrals: Haley Rayo MD [Primary Care Provider] - 05/13/21 11:00 am (1 week) Seun Blunt MD [Physician] - 05/12/21 9:40 am ([address] Blunt (or Cristina Medrano or Rosalva Hoskins)) Diet: Regular Addtl Attending Provider Instructions: Ms Matthews, You were hospitalized for chest heaviness. We performed a series of tests to ensure this was not your heart. Your heart monitoring, blood work for the heart, echocardiogram, and stress test were all normal. In sum these tests suggest that your heaviness was not from the heart. We performed a CT scan of the chest. This demonstrated your hiatal hernia (which was previously known) as well as a large cyst of the liver. We did not see blood clots of the lungs, tumors of the lungs, pneumonia, etc. All signs pointed towards your hiatal hernia as the cause of your symptoms. An EGD/upper endoscopy was performed by Dr Blunt today showing gastritis (irritation) of the stomach. Please see handout. Your symptoms got better with acid reducers. The acid reducers will heal the gastritis and prevent further irritation. recommendations - 1. pantoprazole 40mg twice daily every day 2. sucralfate 1gm three times daily x 7 days then stop 3. avoid excessive amounts of caffeinated beverages (soda, coffee, tea). 4. avoid fried foods, fast foods, spicy foods. 5. would recommend against use of aspirin, motrin, ibuprofen, alleve, or naprosyn as these will irritate your stomach. IT IS OK to take [id number] tylenol for aches/pains. 6. consider elevating the head of your bed at night while sleeping. Do not lay down immediately after eating as this worsens heartburn. 7. please ask your family doctor about getting at least 1 more IV infusion of iron as an outpatient. you do not need to take oral iron supplements at this time. Follow-up - see separate section; ultimately the plan is to refer you to a specialist in [place] for the liver cyst and hiatal hernia Return to [facility] if - * you see black, tarry or dark stools * you have severe abdominal pain * you have severe chest pain or discomfort * you see bright red blood in your stools * any other concerns It was our pleasure to care for you at [facility]! Dr Restrepo Pending Studies at Discharge: Yes Studies:: Biopsies from upper endoscopy Stand-Alone Forms: My [facility], Smoking Cessation Medications and DC Order Prescriptions: Continued amlodipine 10 mg tablet 10 mg PO QAM Qty: 90 RF: 3 epinephrine [EpiPen] 0.3 mg/0.3 mL auto-injector 0.3 mg IM Q3H PRN (Reason: Allergic Reaction) Qty: 2 RF: 3 doxepin 10 mg capsule 10 mg PO HS Qty: 30 RF: 0 zolpidem 5 mg tablet 5 mg PO HS PRN (Reason: insomnia) RF: 0 No Action pantoprazole 40 mg tablet,delayed release (DR/EC) 40 mg PO DAILY Qty: 30 RF: 2 Discharge Orders: Discharge Order (Routine); Ordered 05/06/21 Ordered By: Gil Adkins/Other Patient Handouts: Protonix Oral Tablet 20 mg, Carafate Oral Tablet 1000 mg, What Is a Hiatal Hernia?, Treating Gastritis, Understanding Gastritis Admission Data Admit Date/Time: 05/04/21 18:12 Attending Provider: Gil Restrepo Admit Provider: Gil Restrepo Primary Care Provider: Haley Rayo Other Providers: Gil Restrepo ; Seun Blunt Other Interventions: Discharge Summary Assessment (RN) Last Done: 05/06/21 16:48 Coding Level of Care Code 14917 OBS Care - Discharge Diagnoses Precordial chest pain R07.2 Hypertension I10 Hyperlipidemia E78.5 Hiatal hernia K44.9 Insomnia G47.00 Iron deficiency anemia D50.9 Obstructive sleep apnea G47.33 Hepatic cyst K76.89 Gastroesophageal reflux disease K21.9 Gastritis K29.70
== END 2021-05-06 18:28 | disposition home or self-care (01) ==
LOC: 2W 14:19 → ED 14:19 → 2W 19:49 → 3E 05-06 02:08